=== PATIENT | female | born 1970 | race Caucasian/White ===

== ENCOUNTER 2018-12-31 11:47 | Outpatient (REF) | payer BC, SELFPAY | END 2018-12-31 12:07 | LOC: NCHCN 11:47 | PROVIDERS: PCP Nurse Practitioner; Visit Provider Family Medicine | DX: K61.1 Rectal abscess (principal) | CPT/HCPCS: 87070; 87205 ==

== ENCOUNTER 2019-05-11 15:27 | Outpatient (REF) | payer BC, SELFPAY ==
--- NOTE | 2019-05-11 15:00 | SKI_PTH ---
PATIENT: Maddi Anthony LOC: [facility] U#:[id number] AGE/SX: 49/F ROOM: RE05/11/[address]: Ghassan Rivas : 1970 BED: DIS: 05/11/2019 SPEC #: [id number] RECD: 05/12/19 12:46 STATUS: OPAL REQ #: [id number] INGE: 05/11/19 15:[address]: Ghassan Rivas DEPT: Surgical Specimen RECD BY: Coreen Marinelli ENTERED: 05/12/19 12:47 SP TYPE: TODD HOLMAN DR: Yoselin Alfaro Tissues: 1 - SKIN BIOPSY(SHAVE/PUNCH) Procedures: SKIN LEVEL 4 Comments: [id number]
== END 2019-05-11 15:47 ==
LOC: NCHCN 15:27
PROVIDERS: PCP Nurse Practitioner; Visit Provider Family Medicine
DX: L92.1 Necrobiosis lipoidica, not elsewhere classified (principal); L92.8 Other granulomatous disorders of the skin and subcutaneous tissue
CPT/HCPCS: 88305

== ENCOUNTER 2019-09-05 17:25 | Outpatient (REF) | payer BC, SELFPAY ==
[2019-09-05 18:53] LABS: COMMENT (LAB VIEW ONLY) < 13.00 mg/dL
== END 2019-09-05 17:45 ==
LOC: NCHCN 17:25
PROVIDERS: PCP Nurse Practitioner; Visit Provider Nurse Practitioner
DX: E11.9 Type 2 diabetes mellitus without complications (principal); Z79.4 Long term (current) use of insulin
CPT/HCPCS: 82043; 82570

== ENCOUNTER 2019-11-23 09:20 | Day surgery (SDC) | payer BC, SELFPAY ==
--- NOTE | 2019-11-23 07:33 | PDOC.DSDIS_ITS ---
Documented by User: Roseann Christian 11/23/19 07:37 Discharge Plan Disposition Patient Disposition: HOME Condition: Good Discharge Details Reason For Visit: LMF trigger finger Attending Provider: Cameron Caruso Primary Care Provider: Yoselin Alfaro Home Meds and New Rx's Prescriptions: New acetaminophen [Tylophen] 500 mg capsule 500 mg PO Q6H PRN (Reason: postoperative pain) Qty: 60 RF: 1 ibuprofen 600 mg tablet 600 mg PO TID PRN (Reason: pain) Qty: 60 RF: 1 hydrocodone-acetaminophen 5-325 mg tablet 1 tab PO Q8H PRN PRN (Reason: pain) Qty: 6 RF: 0 Continued metformin [Glucophage] 1,000 MG tablet 1,000 mg PO BID RF: 0 Lantus Solostar U-100 Insulin 100 UNIT/1 ML insulin pen 40 unit SQ HS RF: 0 fluticasone propion-salmeterol [Advair Diskus] 1 EACH blister with device 1 ea Inhalation BID RF: 0 omeprazole 20 MG capsule,delayed release(DR/EC) 1 tab PO DAILY RF: 0 albuterol sulfate [ProAir HFA] 200 PUFF HFA aerosol inhaler 2 puff Inhalation Q4H PRN PRNQty: 1 RF: 0 acyclovir 400 mg Tablet 400 mg PO PRN PRNRF: 0 pravastatin 10 mg Tablet 10 mg PO HS RF: 0 Ozempic 0.25 mg or 0.5 mg(2 mg/1.5 mL) Pen Injector 0.5 mg SUBCUT QWEEK RF: 0 No Action amitriptyline 50 mg Tablet 50 mg PO QHS RF: 0 Discharge Instructions Stand Alone Forms: Zuly Foote Finger Release Referrals: Cameron Caruso MD [ [facility] STAFF PHYSICIAN] - Activity:: Elevate Remove Dressings/Wound Care:: 48 hours Shower/Bathe:: 48 hours Diet:: As Tolerated Discharge Orders Discharge Orders: Discharge Order (Routine); Ordered 11/23/19 Ordered By: Roseann Christian DS: Diagnosis Discharge Diagnosis (1) Trigger finger, left middle finger: Status: Acute Documented by User: Cameron Caruso MD 11/23/19 10:41 Discharge Plan Disposition Patient Disposition: HOME Condition: Good Discharge Details Reason For Visit: LMF trigger finger Attending Provider: Cameron Caruso Primary Care Provider: Yoselin Alfaro Home Meds and New Rx's Prescriptions: New acetaminophen [Tylophen] 500 mg capsule 500 mg PO Q6H PRN (Reason: postoperative pain) Qty: 60 RF: 1 ibuprofen 600 mg tablet 600 mg PO TID PRN (Reason: pain) Qty: 60 RF: 1 hydrocodone-acetaminophen 5-325 mg tablet 1 tab PO Q8H PRN PRN (Reason: pain) Qty: 6 RF: 0 Continued metformin [Glucophage] 1,000 MG tablet 1,000 mg PO BID RF: 0 Lantus Solostar U-100 Insulin 100 UNIT/1 ML insulin pen 40 unit SQ HS RF: 0 fluticasone propion-salmeterol [Advair Diskus] 1 EACH blister with device 1 ea Inhalation BID RF: 0 omeprazole 20 MG capsule,delayed release(DR/EC) 1 tab PO DAILY RF: 0 albuterol sulfate [ProAir HFA] 200 PUFF HFA aerosol inhaler 2 puff Inhalation Q4H PRN PRNQty: 1 RF: 0 acyclovir 400 mg Tablet 400 mg PO PRN PRNRF: 0 pravastatin 10 mg Tablet 10 mg PO HS RF: 0 Ozempic 0.25 mg or 0.5 mg(2 mg/1.5 mL) Pen Injector 0.5 mg SUBCUT QWEEK RF: 0 No Action amitriptyline 50 mg Tablet 50 mg PO QHS RF: 0 Discharge Instructions Stand Alone Forms: Zuly Foote Finger Release Referrals: Cameron Caruso MD [ [facility] STAFF PHYSICIAN] - Activity:: Elevate Remove Dressings/Wound Care:: 48 hours Shower/Bathe:: 48 hours Diet:: As Tolerated Discharge Orders Discharge Orders: Discharge Order (Routine); Ordered 11/23/19 Ordered By: Roseann Christian
[2019-11-23] MEDS: Lactated Ringers 1,000 ML 80 ML IV (10:05)
[2019-11-23] MEDS: Sodium Bicarbonate 50 MEQ/50 ML VIAL (10:50)
[2019-11-23 11:28] VITALS: BP 119/89; PULSE 96; RESP 18; TEMP 36; O2SAT 99
--- NOTE | 2019-11-23 21:40 | W.PM.OP ---
Date of service: 11/23/19 Time of Service: 12:42 Operative Note Operative Note DATE OF PROCEDURE: 11/23/19 PRE-OP DIAGNOSIS: Left middle finger trigger finger POST-OP DIAGNOSIS: same PROCEDURE: Trigger Finger Release - [finger] Finger SURGEON: Cameron Caruso ANESTHESIA: MAC and local ESTIMATED BLOOD LOSS: 0 PATHOLOGY: none sent COMPLICATIONS: None Patient was transported to: same day Patient's condition: stable Indications: I have seen Maddi in clinic for symptoms of a trigger finger. The catching, clicking, locking, and pain limited function. The diagnosis of trigger finger was evident. The symptoms had not responded to conservative measures. I discussed trigger finger release with the patient. I reviewed the risks of the procedure to include, but not limited to, bleeding, infection, pain, stiffness, incomplete release, damage to nerves or vessels, continued catching, recurrence. Despite these risks, the patient elected to proceed. Findings: There was a tightened A1 bianca which was released. The flexor tendons were inspected and the patient was able to move the finger without any catching, clicking, or locking. Procedure Description: Maddi was greeted in the preoperative holding area where the correct side was identified and marked. The consent was reviewed with the patient and signed. All questions were answered. Maddi was taken back to the operating room. The patient was placed into the supine position on the operating room table with the left arm on an arm board. All bony prominences were well padded. No prophylactic antibiotics were administered since this was a clean, elective hand surgical case. The left arm was then prepped with Chloraprep and draped in a standard fashion with stockinette and extremity drape. A timeout to confirm correct identity, side and site, procedure, allergies, anesthesia, and medical concerns was performed. The surgical site was marked as a longitudinal incision directly over the A1 bianca of the involved digit. This was confirmed with palpation during finger flexion. This area, overlying the metacarpal head, was then anesthetized with 1% Lidocaine. The patient tolerated this well and once the anesthetic had setup, the procedure began. A MAC anesthetic was used to assist. A longitudinal incision was made through skin only, approximately 1cm. The deep tissues were dissected bluntly. Once the A1 bianca and flexor tendons were identified the soft tissue including neurovascular structures were retracted medially and laterally. There were no crossing structures over the A1 bianca. The proximal edge of the bianca was identified and the bianca was incised with tenotomy scissors. There was a release of the tendons once this was fully released. The tendons were then removed from the wound and inspected. Excess synovium was resected. The tendons were then returned and the patient was asked to move the finger into deep flexion and back to extension. There was no recreation of the pre-operative symptoms. The hand was then once more inspected for any A0 bianca or area of possible constriction. The wound was then irrigated and the skin was closed with a 4-0 Nylon. This was dressed with gauze and a Conform dressing. The patient tolerated the procedure well and was returned to the Same Day Surgery area in a stable condition suffering no known complication.
== END 2019-11-23 11:53 | disposition home or self-care (01) ==
LOC: SUR 09:21
PROVIDERS: PCP Nurse Practitioner; Visit Provider Student in an Organized Health Care Education/Training Program
PROC: (CPT 26055; principal; 2019-11-23 11:00)
DX: M65.332 Trigger finger, left middle finger (principal)
CPT/HCPCS: 26055; J2250; J2704

== ENCOUNTER 2020-05-10 21:30 | Outpatient (REF) | payer BC, SELFPAY ==
[2020-05-10 19:06] LABS: Hemoglobin A1C 7.2 % (3.8-5.6)
[2020-05-10 19:14] LABS: ALT 46 U/L (14-59); AST 26 U/L (15-37); Albumin 4.4 g/dL (3.4-5.0); Alkaline Phosphatase 70 U/L (46-116); Anion Gap 11.4 mmol/L (3-11); BUN 6 mg/dL (7-18); Bilirubin, Total 0.4 mg/dL (0.2-1.0); CO2 25.6 mmol/L (21.0-32.0); CREATININE 0.67 mg/dL (0.55-1.02); Calculated LDL 47 mg/dL (<100); Chloride 99 mmol/L (98-107); Cholesterol 131 mg/dL (<200); Glucose 186 mg/dL (74-106); HDL Cholesterol 71 mg/dL (40-60); Potassium 4.1 mmol/L (3.5-5.1); Sodium 136 mmol/L (136-145); TSH (W/Ref FT4) 0.34 uIU/mL (0.36-3.74); Total Protein 7.6 g/dL (6.4-8.2); Triglyceride 69 mg/dL (<150)
[2020-05-10 19:49] LABS: FREE T4 1.35 ng/dL (0.76-1.46)
== END 2020-05-10 21:50 ==
LOC: NCHCN 21:30
PROVIDERS: PCP Nurse Practitioner; Visit Provider Nurse Practitioner
DX: E03.9 Hypothyroidism, unspecified (principal); E11.9 Type 2 diabetes mellitus without complications; Z79.4 Long term (current) use of insulin
CPT/HCPCS: 80053; 80061; 83036; 84439; 84443

== ENCOUNTER 2020-05-15 10:56 | Outpatient (CLI) | payer BC, SELFPAY ==
--- NOTE | 2020-05-15 13:05 | DI.MAMMO_ITS ---
EXAM: MG MAMMO SCREENING CLINICAL HISTORY: SCREENING, [facility],Z00.00 TECHNIQUE: Bilateral full field digital CC and MLO mammographic images were obtained with 3D tomosyn thesis and utilizing computer aided detection (CAD). COMPARISON: Available for comparison. FINDINGS: Masses/Architectural Distortion: None seen. Microcalcifications: No suspicious pleomorphic-type are seen. Skin Thickening/Nipple Retraction: None. IMPRESSION: 1. No significant interval change with no specific features of malignancy noted. 2. Unless there is more urgent need, screening mammography is recommended, as per [place] [employer] guidelines. BI-RADS Category 1 - Negative Breast Density - Category B - Scattered areas of fibroglandular density A negative radiographic report should not delay biopsy if a dominant or clinically suspicious mass is present. Up to ten percent of cancers are not identified on mammography. A negative report may reinforce clinical impression. Adenosis and dense breasts may obscure an underlying neoplasm. False positive reports average 6 to 10%. Patient will receive a letter notifying them of these results.
== END 2020-05-15 11:16 ==
PROVIDERS: PCP Nurse Practitioner; Visit Provider Nurse Practitioner Family
DX: Z12.31 Encounter for screening mammogram for malignant neoplasm of breast (principal)
CPT/HCPCS: 77063; 77067

== ENCOUNTER 2021-01-07 20:35 | Outpatient (REF) | payer BC, SELFPAY | END 2021-01-07 20:36 | disposition home or self-care (01) | LOC: NCHCN 20:35 | PROVIDERS: PCP Nurse Practitioner; Visit Provider Nurse Practitioner Family | DX: N89.8 Other specified noninflammatory disorders of vagina (principal) | CPT/HCPCS: 87480; 87510; 87660 ==

== ENCOUNTER 2021-01-12 18:34 | Emergency (ER) | payer BC, SELFPAY ==
[2021-01-12 18:41] VITALS: BP 155/99; PULSE 89; TEMP 36.6; O2SAT 99
--- NOTE | 2021-01-12 18:49 | W.ED.GENAD ---
Discharge Plan Disposition Patient Disposition: HOME Condition: Stable Discharge Details Clinical Impression: Abrasion of cornea, right Primary Care Provider: Yoselin Alfaro ED Provider: Rosemarie Gotti Home Meds and New Rx's Prescriptions: Continued metformin [Glucophage] 1,000 MG tablet 1,000 mg PO BID RF: 0 Lantus Solostar U-100 Insulin 100 UNIT/1 ML insulin pen 30 unit SQ HS RF: 0 omeprazole 20 MG capsule,delayed release(DR/EC) 1 tab PO DAILY RF: 0 acyclovir 400 mg Tablet 400 mg PO BID RF: 0 pravastatin 10 mg Tablet 10 mg PO HS RF: 0 Ozempic 0.25 mg or 0.5 mg(2 mg/1.5 mL) Pen Injector 0.5 mg SUBCUT QWEEK RF: 0 acetaminophen [Tylophen] 500 mg capsule 500 mg PO Q6H PRN (Reason: postoperative pain) Qty: 60 RF: 1 ibuprofen 600 mg tablet 600 mg PO TID PRN (Reason: pain) Qty: 60 RF: 1 tizanidine 2 mg tablet 2 mg PO QHS PRNRF: 0 Discharge Instructions Instructions: Corneal Abrasion (ED) Additional Instructions: Continue to gently irrigate your eye with saline type solution as needed. Wear glasses until seen or advised by [facility]. At this time there was no contact lens visualized in your eye. There was a small corneal abrasion noted. If you continue to have symptoms please follow-up with [facility] on Thursday. Return to the ED for any eye discharge, worsening pain, or any concerns. Referrals: Yoselin Alfaro [Primary Care Provider] - EYE CARE,[facility] [OTHER] - Medical Decision Making 50-year-old female presents to the ER chief complaint of possible dislocated contact lens in her right eye since this morning. Patient is new to contact lenses and is using a trial pair of soft contact lenses and she states that she had a difficulty removing the right contact lens this morning and throughout the day she felt that she was unable to get it out. She is not sure if it is still in there or not. She does have a foreign body type sensation to her right lateral eye. She does have mild amount of erythema surrounding her eye, mildly injected conjunctive a. No drainage. Eye exam completed with Mac lamp and fluorescein, as noted in proceure note above, patient did not tolerate flipping of her eyelid, contact lenses or any foreign body was not visualized by me. There is a small corneal abrasion at 9:00 just lateral to the iris, patient is allergic to erythromycin. No antibiotics are indicated at this time. I did discuss home care with continued saline flushing as needed with patient, instructed to wear glasses and if continued discomfort to call [facility] on Thursday. Patient verbalizes understanding. She states that her irritation and pain has improved status post flushing with artificial tears. Discussed return instructions, patient verbalized understanding. This text was generated using [employer] dictation system, please disregard any oddities of phrase or misspellings. HPI General Mode of arrival: ambulatory. Date/Time Provider Initiated Documentation: 01/12/21 18:41. Limitations to Documentation: no limitations. Information obtained by: patient. HPI Narrative: 50-year-old female presents to the ER chief complaint of possible dislocated contact lens in her right eye since this morning. Patient is new to contact lenses and is using a trial pair of soft contact lenses and she states that she had a difficulty removing the right contact lens this morning and throughout the day she felt that she was unable to get it out. She is not sure if it is still in there or not. She does have a foreign body type sensation to her right lateral eye. She does have mild amount of erythema surrounding her eye, mildly injected conjunctive a. No drainage. Related Data Home Medications Medication Instructions Recorded Confirmed Lantus Solostar U-100 Insulin 30 unit SQ HS 08/01/13 01/12/21 metformin [Glucophage] 1,000 mg PO BID 08/01/13 01/12/21 omeprazole 1 tab PO DAILY 12/06/16 01/12/21 Ozempic 0.5 mg SUBCUT QWEEK 11/21/19 01/12/21 acyclovir 400 mg PO BID 11/21/19 12/02/19 pravastatin 10 mg PO HS 11/21/19 01/12/21 acetaminophen [Tylophen] 500 mg PO Q6H PRN #60 cap 11/23/19 01/12/21 ibuprofen 600 mg PO TID PRN #60 tab 11/23/19 01/12/21 tizanidine 2 mg PO QHS PRN 01/12/21 01/12/21 Previous Rx's Medication Instructions Recorded acetaminophen [Tylophen] 500 mg PO Q6H PRN #60 cap 11/23/19 ibuprofen 600 mg PO TID PRN #60 tab 11/23/19 Allergies Allergy/AdvReac Type Severity Reaction Status Date / Time Penicillins Allergy Severe Anaphylaxsi Unverified 01/12/21 18:46 s erythromycin base AdvReac Intermediate VOMITING Unverified 01/12/21 18:46 tramadol AdvReac Intermediate Nausea Unverified 01/12/21 18:46 acetaminophen AdvReac Unknown Unverified 01/12/21 18:46 [From Tylenol-Codeine] codeine AdvReac Unknown Other (See Unverified 01/12/21 18:46 [From Tylenol-Codeine] Comment) General Stated Complaint: EyeProblem MYLES: 4 Review of Systems All systems reviewed & are unremarkable except as noted in HPI and below Eyes Eyes: Reports system reviewed and no additional complaints, except as documented, Reports irritation and Reports other (Possible contact lens foreign body in eye) PFSH Medical History CHRONIC BRONCHITIS DM Smoker Surgical History Abdominal hysterectomy Hx of appendectomy Hx of cholecystectomy Trigger finger, left middle finger s/p release 11/23/2019 Social History Smoking/Tobacco Use Status: Former Tobacco Use Smoking risk assessment performed?: Yes Alcohol Intake: current Alcohol Intake frequency: holidays/special occasions only Drug use: Never Substance use type: does not use Do you feel safe at home: Yes Additional Social history: NOT IN CURRENT RELATIONSHIP Exam Eyes General: appearance normal, both eyes and all related structures Periorbital: periorbital findings abnormal right periorbital erythema (Mild) Eyelids: eyelids normal Conjunctivae: conjunctival abnormality right conjunctival injection (Mild) diffuse; without chemosis and without discharge Sclera: sclerae normal Cornea: corneas abnormal on the right fluorescein used and abrasion at the following clock position (9:00); with no foreign body noted (None visualized) and fluorescein used Pupils: PERRL and normal by confrontation EOM: EOM intact bilaterally Direct ophthalmoscopy: normal light reflex Other: Unable to flip lid, patient did not tolerate Eyes/upper lids images: 1. Corneal abrasion Course Vital Signs Vital signs: Vital Signs Temperature 36.6 C 01/12/21 18:41 Pulse 89 01/12/21 18:41 Blood Pressure 155/99 H 01/12/21 18:41 Pulse Oximetry 99 01/12/21 18:41 Temperature 36.6 C 01/12/21 18:41 Temperature Source Oral 01/12/21 18:41 Pulse 89 01/12/21 18:41 Blood Pressure 155/99 H 01/12/21 18:41 Blood Pressure Position Sitting 01/12/21 18:41 Pulse Oximetry 99 01/12/21 18:41 Oxygen Delivery Method Room Air 01/12/21 18:41 Oxygen Flow Rate 0 01/12/21 18:41 Pain Level 3 01/12/21 18:41 Procedures FB Removal Eye Time Out performed: Yes Location: eye (R) Topical anesthetic used: tetracaine Foreign body: other (Contact lens) Evidence of corneal penetration: No Technique: irrigation Procedure performed under: direct visualization with magnification (None visualized with mac lamp) Patient tolerated procedure: well Complications: incomplete foreign body removal and other (No FB visualized)
== END 2021-01-12 19:40 | disposition home or self-care (01) ==
PROVIDERS: Emergency Provider Registered Nurse Emergency; PCP Nurse Practitioner
DX: S05.01XA Injury of conjunctiva and corneal abrasion without foreign body, right eye, initial encounter (principal); X58.XXXA Exposure to other specified factors, initial encounter
CPT/HCPCS: 65205

== ENCOUNTER 2021-06-21 18:22 | Outpatient (REF) | payer BC, SELFPAY ==
--- NOTE | 2021-06-21 | DI.RAD_ITS ---
Exam(s) XR FOOT LT COMPLETE XR ANKLE LT COMPLETE EXAM: XR ANKLE LT COMPLETE CLINICAL HISTORY: PAIN IN LEFT ANKLE TECHNIQUE: COMPARISON: CR,XR XR FOOT LT COMPLETE from 06/21/2021 CR,XR XR FOOT LT COMPLETE from 06/21/2021 FINDINGS: Three views of the ankle and three views of the foot were obtained. The ankle mortise is well mainta ined. There is no evidence of acute fracture or dislocation involving the foot or ankle. IMPRESSION: RADIATION DOSE DELIVERED: Total DLP
--- NOTE | 2021-06-21 18:55 | DI.VRAD_ITS ---
PROCEDURE INFORMATION: Exam: XR Left Ankle Exam date and time: 06/21/2021 6:27 PM Age: 51 years old Clinical indication: Patient HX: Pain in left ankle TECHNIQUE: Imaging protocol: XR Left ankle. Views: 3 or more views. COMPARISON: No relevant prior studies available. FINDINGS: Bones/joints: Normal. Soft tissues: Normal. IMPRESSION: No acute findings. Dictated and Authenticated by: Clinton Mcdonnell MD. Ordering:HECTOR Delgado MD
--- NOTE | 2021-06-21 18:56 | DI.VRAD_ITS ---
PROCEDURE INFORMATION: Exam: XR Left Foot Exam date and time: 06/21/2021 6:27 PM Age: 51 years old Clinical indication: Patient HX: Pain in left foot, left ankle TECHNIQUE: Imaging protocol: XR Left foot. Views: 3 or more views. COMPARISON: No relevant prior studies available. FINDINGS: Bones/joints: Normal. Soft tissues: Normal. IMPRESSION: No acute findings. Dictated and Authenticated by: Clinton Mcdonnell MD. Ordering:HECTOR Delgado MD
== END 2021-06-21 18:42 ==
LOC: DI 18:22
PROVIDERS: PCP Nurse Practitioner; Visit Provider Physician Assistant Medical
DX: M79.672 Pain in left foot (principal); M25.572 Pain in left ankle and joints of left foot
CPT/HCPCS: 73610; 73630

== ENCOUNTER 2021-08-06 18:55 | Emergency (ER) | payer BC, SELFPAY ==
[2021-08-06 18:56] VITALS: BP 139/65; PULSE 100; RESP 18; TEMP 36.4; O2SAT 99
--- NOTE | 2021-08-06 19:32 | ED.GENADUL_ITS ---
Discharge Plan Disposition Patient Disposition: HOME Condition: Stable Discharge Details Clinical Impression: Bee sting reaction Primary Care Provider: Yoselin Alfaro ED Provider: Rosemarie Gotti Home Meds and New Rx's Prescriptions: New epinephrine 0.3 mg/0.3 mL auto-injector 0.3 mg IM ONCE PRN (Reason: anaphylaxis) Qty: 1 RF: 0 No Action ibuprofen 200 mg capsule 200 mg PO Q6H PRNRF: 0 fluticasone propionate 50 mcg/actuation spray,suspension 1 spray intranasal BID RF: 0 Lantus Solostar U-100 Insulin 100 unit/mL (3 mL) insulin pen 30 unit subcut HS RF: 0 metformin [Glucophage] 1,000 MG tablet 1,000 mg PO BID RF: 0 omeprazole 20 MG capsule,delayed release(DR/EC) 1 tab PO DAILY RF: 0 acyclovir 400 mg Tablet 400 mg PO BID RF: 0 pravastatin 10 mg Tablet 10 mg PO HS RF: 0 Ozempic 0.25 mg or 0.5 mg(2 mg/1.5 mL) Pen Injector 0.5 mg SUBCUT QWEEK RF: 0 acetaminophen [Tylophen] 500 mg capsule 500 mg PO Q6H PRN (Reason: postoperative pain) Qty: 60 RF: 1 ibuprofen 600 mg tablet 600 mg PO TID PRN (Reason: pain) Qty: 60 RF: 1 Discharge Instructions Instructions: Insect Bite or Sting (ED), Anaphylaxis (ED) Additional Instructions: At this time it appears you may have an allergic reaction to bee sting. This could be some tongue swelling from where the bee stung you. Please continue to take Benadryl 1 or 2 tablets every 6-8 hours as needed for swelling and hives. You may also take histamine 2 joan such as Pepcid daily for the next few days. You were given a steroid here in the department to reduce swelling for the next 3 days. This may make you feel jittery and the EpiPen will also make you feel jittery. Please return to the ER if you need to use the EpiPen again, any worsening shortness of breath, wheezing, swelling in your throat or any concerns. Referrals: Yoselin Alfaro [Primary Care Provider] - 5 days Discharge Data Discharge Date/Time-TO BE ENTERED AT DEPARTURE: 08/06/21 20:35 Medical Decision Making 51-year-old female presents to the ER via EMS status post being stung by a bee to the right side of her tongue prior to arrival. Patient reports that she was drinking a twisted tea when a bee had flown into it and staying around let the tongue. She was given Benadryl and 0.3 mg of EpiPen prior to arrival which impr trell her symptoms. She did initially complain of tongue swelling and pain. She reports 10 out of 10 tongue pain, and slight tongue swelling. Upon my initial exam she is speaking in full sentences, lungs are clear vital signs are stable. She reports that she feels much better. This has never happened to her before. She has no rash or any other associated symptoms. Posterior oropharynx is not swollen, uvula is midline, tonsils are 1+ bilaterally, no stridor no wheezes auscultated at this time. She does have a past medical history of chronic bronchitis, anxiety, hypothyroidism, IBS, diabetes. At this time plan is for discharge we will give p.o. dexamethasone here and discharged with EpiPen. Patient remained hemodynamically stable throughout stay. Instructed the use of EpiPen and strict return instructions. Patient verbalized understanding. Discussed sucking on ice. Taking Benadryl 1 or 2 tablets every 6-8 hours as needed for swelling or itching. HPI General Mode of arrival: EMS . Date/Time Provider Initiated Documentation: 08/06/21 19:32 . Limitations to Documentation: no limitations . Information obtained by: patient, RN notes reviewed and old records reviewed . HPI Narrative: 51-year-old female presents to the ER via EMS status post being stung by a bee to the right side of her tongue prior to arrival. Patient reports that she was drinking a twisted tea when a bee had flown into it and staying around let the tongue. She was given Benadryl and 0.3 mg of EpiPen prior to arrival which improved her symptoms. She did initially complain of t ongue swelling and pain. She reports 10 out of 10 tongue pain, and slight tongue swelling. Upon my initial exam she is speaking in full sentences, lungs are clear vital signs are stable. She reports that she feels much better. This has never happened to her before. She has no rash or any other associated symptoms. Posterior oropharynx is not swollen, uvula is midline, tonsils are 1+ bilaterally, no stridor no wheezes auscultated at this time. She does have a past medical history of chronic bronchitis, anxiety, hypothyroidism, IBS, diabetes. Related Data Home Medications Medication Instructions Recorded Confirmed metformin [Glucophage] 1,000 mg PO BID 08/01/13 08/06/21 omeprazole 1 tab PO DAILY 12/06/16 08/06/21 Ozempic 0.5 mg SUBCUT QWEEK 11/21/19 08/06/21 acyclovir 400 mg PO BID 11/21/19 08/06/21 pravastatin 10 mg PO HS 11/21/19 08/06/21 acetaminophen [Tylophen] 500 mg PO Q6H PRN #60 cap 11/23/19 08/06/21 ibuprofen 600 mg PO TID PRN #60 tab 11/23/19 08/06/21 fluticasone propionate 50 1 spray INTRANASAL BID 07/08/21 08/06/21 mcg/actuation nasal spray,suspension ibuprofen 200 mg capsule 200 mg PO Q6H PRN 07/08/21 08/06/21 insulin glargine 100 unit/mL (3 30 unit SUBCUT HS ml 07/08/21 08/06/21 mL) subcutaneous pen epinephrine 0.3 mg IM ONCE PRN #1 ea 08/06/21 Previous Rx's Medication Instructions Recorded acetaminophen [Tylophen] 500 mg PO Q6H PRN #60 cap 11/23/19 ibuprofen 600 mg PO TID PRN #60 tab 11/23/19 epinephrine 0.3 mg IM ONCE PRN #1 ea 08/06/21 Allergies Allergy/AdvReac Type Severity Reaction Status Date / Time Penicillins Allergy Severe Anaphylaxsi Unverified 08/06/21 19:03 s erythromycin base AdvReac Intermediate VOMITING Unverified 08/06/21 19:03 tramadol AdvReac Intermediate Nausea Unverified 08/06/21 19:03 acetaminophen AdvReac Unknown Unverified 08/06/21 19:03 [From Tylenol-Codeine] codeine AdvReac Unknown Other (See Unverified 08/06/21 19:03 [From Tylenol-Codeine] Comment) General Stated Complaint: Allergic MYLES: 2 Review of Systems Narrative: Constitutional: Negative for weight loss, alert and oriented, well groomed, normal body habitus, appears comfortable. Does have some right-sided tongue swelling as noted in HPI. HEENT: Denies trauma, headaches, blurry vision, nasal discharge, sore throat, trouble swallowing. Chest: Denies chest pain, palpitations, irregular rhythm, hypertension. Respiratory: Denies Shortness of breath, cough, hemoptysis. Denies wheezing. GI: Denies abdominal pain, nausea, vomiting, diarrhea, constipation. : Denies dysuria, hematuria, flank pain, rectal bleeding. Neuro: Denies dizziness, blurry vision, weakness, syncope, headache or facial numbness. Hematologic: Denies easy bruising, intolerance to heat or cold, hair loss. [facility] Medical History (Updated 08/06/21 @ 20:21 by Rosemarie Gotti) Anger Chronic anxiety CHRONIC BRONCHITIS Chronic bronchitis DM Hoarseness IBS (irritable bowel syndrome) Insomnia Insulin dependent diabetes mellitus Intertrigo Necrobiosis lipoidica diabeticorum Overactive bladder Smoker Subclinical hypothyroidism Tendonitis Tobacco dependency Urinary frequency Vaginal dryness Surgical History Abdominal hysterectomy Hx of appendectomy Hx of cholecystectomy Trigger finger, left middle finger s/p release 11/23/2019 Social History Smoking/Tobacco Use Status: Current every day Tobacco Type: cigarettes Smoking risk assessment performed?: Yes Alcohol Intake: current Alcohol Intake frequency: a few times a week Alcohol type: hard liquor Drug use: Never Substance use type: does not use Do you feel safe at home: Yes Do you feel safe in your relationship?: Yes Additional Social history: NOT IN CURRENT RELATIONSHIP Exam Narrative Exam Narrative: Constitutional: Alert and oriented x3. Appears stated age. Normal body habitus. Head: Normocephalic, no trauma. Eyes: Pupils PERRLA, Red reflex noted, EOM's intact. Eyelids symmetrical without lesions, discharge, or swelling. ENT: Bilateral TM's WNL, External ear normal to inspection, no mastoid TTP, swelling, or erythema, Nasal turbinates WNL, no nasal discharge. Normal dentition, Posterior pharynx WNL, no exudate. Slight amount of swelling noted to the right side of the tongue. No stinger visualized. Uvula midline no posterior pharynx swelling. Chest: RRR, Normal S1, S2, distal pulses intact. Resp: Lungs clear to auscultation bilaterally, no wheezes, rales, or rhonchi. No stridor. Musculoskeletal: Normal gait, 5/5 strength to all four extremities. Skin: No suspicious rashes or lesions. Capillary refill less than 2 sec. Neurologic: Cranial nerves II-XII intact. Alert and oriented x 3. DTR's intact. Hematologic/Lymphatic: No ecchymosis, no lymphadenopathy. Course Vital Signs Vital signs: Vital Signs Temperature 36.4 C L 08/06/21 18:56 Pulse 100 H 08/06/21 18:56 Respiratory Rate 18 08/06/21 18:56 Blood Pressure 139/65 08/06/21 18:56 Pulse Oximetry 99 08/06/21 18:56 Temperature 36.4 C L 08/06/21 18:56 Temperature Source Temporal Artery Scan 08/06/21 18:56 Pulse 100 H 08/06/21 18:56 Respiratory Rate 18 08/06/21 18:56 Respiratory Effort Non-Labored 08/06/21 19:07 Respiratory Pattern Normal 08/06/21 19:07 Blood Pressure 139/65 08/06/21 18:56 Blood Pressure Position Sitting 08/06/21 18:56 Pulse Oximetry 99 08/06/21 18:56 Oxygen Delivery Method Room Air 08/06/21 18:56 Oxygen Flow Rate 0 08/06/21 18:56 Pain Level 10 08/06/21 18:56
[2021-08-06] MEDS: Dexamethasone 10 MG/ML VIAL PO (20:16)
[2021-08-06 20:35] VITALS: BP 136/60; PULSE 84; RESP 16; TEMP 36.6; O2SAT 99
[2021-08-06] MEDS: EPINEPHrine 0.3 MG KIT IM (20:36)
== END 2021-08-06 20:35 | disposition home or self-care (01) ==
PROVIDERS: Emergency Provider Registered Nurse Emergency; PCP Nurse Practitioner
DX: T63.441A Toxic effect of venom of bees, accidental (unintentional), initial encounter (principal); R22.0 Localized swelling, mass and lump, head
CPT/HCPCS: 99283; J0171; J1100

== ENCOUNTER 2021-11-04 18:39 | Outpatient (REF) | payer BC, SELFPAY ==
[2021-11-04 20:35] LABS: ALT 41 U/L (14-59); AST 25 U/L (15-37); Albumin 3.9 g/dL (3.4-5.0); Alkaline Phosphatase 76 U/L (46-116); Anion Gap 5.9 mmol/L (3-11); BUN 8 mg/dL (7-18); Bilirubin, Total 0.2 mg/dL (0.2-1.0); CO2 31.1 mmol/L (21.0-32.0); CREATININE 0.7 mg/dL (0.55-1.02); Calcium 9.6 mg/dL (8.5-10.1); Calculated LDL 79 mg/dL (<100); Chloride 103 mmol/L (98-107); Cholesterol 167 mg/dL (<200); Glucose 116 mg/dL (74-106); HDL Cholesterol 77 mg/dL (40-60); Potassium 4.5 mmol/L (3.5-5.1); Sodium 140 mmol/L (136-145); Total Protein 7.3 g/dL (6.4-8.2); Triglyceride 59 mg/dL (<150)
== END 2021-11-04 18:40 | disposition home or self-care (01) ==
LOC: NCHCN 18:39
PROVIDERS: PCP Nurse Practitioner; Visit Provider Nurse Practitioner
DX: E11.9 Type 2 diabetes mellitus without complications (principal); Z79.4 Long term (current) use of insulin
CPT/HCPCS: 80053; 80061

== ENCOUNTER 2021-11-09 14:42 | Emergency (ER) | payer BC, SELFPAY ==
[2021-11-09 14:48] VITALS: BP 118/53; PULSE 103; RESP 16; TEMP 36.2; O2SAT 98
--- NOTE | 2021-11-09 15:00 | DI.RAD_ITS ---
Exam(s) XR THUMB LT EXAM: XR THUMB LT CLINICAL HISTORY: Laceration-evaluate for foreign body/glass. TECHNIQUE: 2D digital imaging was performed. COMPARISON: No exams were available for comparison FINDINGS: Bandage material. No fracture evident. No radiopaque foreign body. No osseous lesions. No radiogr aphic evidence of osteomyelitis. No degenerative changes. IMPRESSION: DATA REPOSITORY: RADIATION DOSE DELIVERED:
--- NOTE | 2021-11-09 15:46 | DI.VRAD_ITS ---
PROCEDURE INFORMATION: Exam: XR Left Finger(s) Exam date and time: 11/09/2021 3:02 PM Age: 51 years old Clinical indication: Injury or trauma; Other: Laceration-evaluate for foreign body/glass; Wound; Finger; Left; Thumb TECHNIQUE: Imaging protocol: XR Left fingers. Views: Minimum 2 views. COMPARISON: MRI - L UPPER JOINT WO CONT 29/08/2016 15:53 FINDINGS: Bones/joints: There is no fracture or dislocation. Soft tissues: No radiopaque foreign body is seen within the soft tissues of the thumb. IMPRESSION: Normal extremity. Dictated and Authenticated by: Grant Smith MD. Ordering:HEATHER Barnes MD
--- NOTE | 2021-11-09 15:49 | ED.GENADUL_ITS ---
Discharge Plan Disposition Patient Disposition: HOME Condition: Improving Discharge Details Clinical Impression: Finger laceration Primary Care Provider: Yoselin Alfaro ED Provider: Cameron Toney Home Meds and New Rx's Prescriptions: Continued ibuprofen 200 mg capsule 200 mg PO Q6H PRNRF: 0 fluticasone propionate 50 mcg/actuation spray,suspension 1 spray intranasal BID RF: 0 Lantus Solostar U-100 Insulin 100 unit/mL (3 mL) insulin pen 30 unit subcut HS RF: 0 metformin [Glucophage] 1,000 MG tablet 1,000 mg PO BID RF: 0 omeprazole 20 MG capsule,delayed release(DR/EC) 1 tab PO DAILY RF: 0 acyclovir 400 mg Tablet 400 mg PO BID RF: 0 pravastatin 10 mg Tablet 10 mg PO HS RF: 0 Ozempic 0.25 mg or 0.5 mg(2 mg/1.5 mL) Pen Injector 0.5 mg SUBCUT QWEEK RF: 0 acetaminophen [Tylophen] 500 mg capsule 500 mg PO Q6H PRN (Reason: postoperative pain) Qty: 60 RF: 1 ibuprofen 600 mg tablet 600 mg PO TID PRN (Reason: pain) Qty: 60 RF: 1 epinephrine 0.3 mg/0.3 mL auto-injector 0.3 mg IM ONCE PRN (Reason: anaphylaxis) Qty: 1 RF: 0 Discharge Instructions Instructions: Finger Laceration (ED) Additional Instructions: Please monitor for signs of infection and return immediately if these occur. Otherwise keep wound clean and dry and return in 10 days for suture removal. Discharge Data Discharge Date/Time-TO BE ENTERED AT DEPARTURE: 11/09/21 16:00 Medical Decision Making Patient presenting for chief complaint of laceration to left hand including thumb and middle finger. Patient denies any other injury or trauma and tetanus is not up-to-date. Plan to do radiological imaging to evaluate for foreign radiopaque glass that may be embedded in finger and update tetanus. No visible radiopaque foreign body is noted on imaging and wound was closed after thorough irrigation and exploration. See procedure note for wound closure Given clean injury I do not feel that empiric antibiotics are needed at this time but close monitoring of wound was discussed with patient. After discussion of diagnosis and plan of care patient has no further needs, questions, or concerns and states clear understanding to return to the emergency department for any worsening symptoms. HPI General Mode of arrival: ambulatory . Date/Time Provider Initiated Documentation: 11/09/21 14:55 . Limitations to Documentation: no limitations . Information obtained by: patient . History of Present Illness 51 year old F presents to the emergency department with the chief complaint of Left thumb laceration, described as severe, with intensity rated at 10. Quality is described as burning, and is localized to the left and upper extremity. Patient reports no radiation. Patient started experiencing this minute(s) (30) and it has been constant. No relieving factors improve symptom(s), No exacerbating factors reported . Patient notes no other symptoms.. Patient did receive the following treatments prior to arrival, none Related Data Home Medications Medication Instructions Recorded Confirmed metformin [Glucophage] 1,000 mg PO BID 08/01/13 11/09/21 omeprazole 1 tab PO DAILY 12/06/16 11/09/21 Ozempic 0.5 mg SUBCUT QWEEK 11/21/19 11/09/21 acyclovir 400 mg PO BID 11/21/19 11/09/21 pravastatin 10 mg PO HS 11/21/19 11/09/21 acetaminophen [Tylophen] 500 mg PO Q6H PRN #60 cap 11/23/19 11/09/21 ibuprofen 600 mg PO TID PRN #60 tab 11/23/19 11/09/21 fluticasone propionate 50 1 spray INTRANASAL BID 07/08/21 11/09/21 mcg/actuation nasal spray,suspension ibuprofen 200 mg capsule 200 mg PO Q6H PRN 07/08/21 11/09/21 insulin glargine 100 unit/mL (3 30 unit SUBCUT HS ml 07/08/21 11/09/21 mL) subcutaneous pen epinephrine 0.3 mg IM ONCE PRN #1 ea 08/06/21 11/09/21 Previous Rx's Medication Instructions Recorded acetaminophen [Tylophen] 500 mg PO Q6H PRN #60 cap 11/23/19 ibuprofen 600 mg PO TID PRN #60 tab 11/23/19 epinephrine 0.3 mg IM ONCE PRN #1 ea 08/06/21 Allergies Allergy/AdvReac Type Severity Reaction Status Date / Time Penicillins Allergy Severe Anaphylaxsi Unverified 11/09/21 14:51 s erythromycin base AdvReac Intermediate VOMITING Unverified 11/09/21 14:51 tramadol AdvReac Intermediate Nausea Unverified 11/09/21 14:51 acetaminophen AdvReac Unknown Unverified 11/09/21 14:51 [From Tylenol-Codeine] codeine AdvReac Unknown Other (See Unverified 11/09/21 14:51 [From Tylenol-Codeine] Comment) General Stated Complaint: Laceration MYLES: 4 Review of Systems Cardiovascular Cardiovascular: Denies syncope and Denies lightheadedness Gastrointestinal Gastrointestinal: Denies nausea and Denies vomiting Musculoskeletal Musculoskeletal: Denies deformity, Denies limited range of motion and Denies numbness Integumentary/Breasts Skin/Breast: Reports as per HPI Neurologic Neurologic: Denies syncope, Denies numbness and Denies paresthesias PFSH All Active Problems Bee sting reaction (Acute) Finger laceration (Acute) Abrasion of cornea, right (Acute) Medical History Anger Chronic anxiety CHRONIC BRONCHITIS Chronic bronchitis DM Hoarseness IBS (irritable bowel syndrome) Insomnia Insulin dependent diabetes mellitus Intertrigo Necrobiosis lipoidica diabeticorum Overactive bladder Smoker Subclinical hypothyroidism Tendonitis Tobacco dependency Urinary frequency Vaginal dryness Surgical History Abdominal hysterectomy Hx of appendectomy Hx of cholecystectomy Trigger finger, left middle finger s/p release 11/23/2019 Social History Smoking/Tobacco Use Status: Current every day Tobacco Type: cigarettes Smoking risk assessment performed?: Yes Alcohol Intake: current Alcohol Intake frequency: a few times a week Alcohol type: hard liquor Drug use: Never Substance use type: does not use Do you feel safe at home: Yes Do you feel safe in your relationship?: Yes Additional Social history: NOT IN CURRENT RELATIONSHIP Exam Const General: cooperative and no acute distress Orientation: alert, awake and oriented x3 Limitations: mental status not altered Resp Effort & Inspection: normal respiratory effort and able to speak in complete sentences Cardio Rate: regular rate Rhythm: regular rhythm Skin General skin exam: no rashes or lesions noted Trauma: laceration (left thumb and middle finger) Nails: normal Neuro General: patient alert, patient awake, patient oriented x3, gait normal, tone normal, moves all extremities, normal light touch, pain and propioception and no focal motor deficits Motor: no movement abnormalities noted Sensory Exam: no sensory deficits noted Extrem General: normal exam except as noted Left upper extremity: hand Details: normal capillary refill, neuromotor exam normal, tendon exam normal, normal ROM of fingers and laceration (2cm thumb(subcutaneous) and 2cm(superficial) middle finger) Course Vital Signs Vital signs: Vital Signs Temperature 36.2 C L 11/09/21 14:48 Pulse 103 H 11/09/21 14:48 Respiratory Rate 16 11/09/21 14:48 Blood Pressure 118/53 L 11/09/21 14:48 Pulse Oximetry 98 11/09/21 14:48 Temperature 36.2 C L 11/09/21 14:48 Temperature Source Skin 11/09/21 14:48 Pulse 103 H 11/09/21 14:48 Respiratory Rate 16 11/09/21 14:48 Respiratory Effort 11/09/21 14:48 Blood Pressure 118/53 L 11/09/21 14:48 Blood Pressure Position Sitting 11/09/21 14:48 Pulse Oximetry 98 11/09/21 14:48 Oxygen Delivery Method Room Air 11/09/21 14:48 Oxygen Flow Rate 0 11/09/21 14:48 Pain Level 10 11/09/21 14:48 Procedures Laceration Laceration 1: Site: hand Side (If applicable): left (thumb) Size (cm): 2 Description: linear and clean Depth: simple, single layer Local Anesthetic: Lidocaine 1% Amount of anesthesia used (mL): 3 Pre-repair: wound explored, irrigated extensively and deep structures intact Skin layer closed with: other (Prolene) Size (cm): 4-0 Number of sutures: 3 Technique: simple, interrupted Laceration 2: Site: hand Side (If applicable): left (middle finger) Size (cm): 2 Description: linear Pre-repair: wound explored and irrigated extensively Skin layer closed with: other (Dermabond skin adhesive)
== END 2021-11-09 16:00 | disposition home or self-care (01) ==
PROVIDERS: Emergency Provider Nurse Practitioner Family; PCP Nurse Practitioner
DX: S61.012A Laceration without foreign body of left thumb without damage to nail, initial encounter (principal); W25.XXXA Contact with sharp glass, initial encounter
CPT/HCPCS: 12002; 90471; 73140

== ENCOUNTER 2021-11-18 14:42 | Emergency (ER) | payer BC, SELFPAY ==
[2021-11-18 14:44] VITALS: BP 136/67; PULSE 85; RESP 14; TEMP 36.8; O2SAT 99
--- NOTE | 2021-11-18 14:51 | ED.GENADUL_ITS ---
Discharge Plan Disposition Patient Disposition: HOME Condition: Good Discharge Details Clinical Impression: Encounter for removal of sutures Primary Care Provider: Yoselin Alfaro ED Provider: Elly Jung Home Meds and New Rx's Prescriptions: Continued polyethylene glycol 3350 17 gram/dose powder 238 g PO ONCE Qty: 238 RF: 0 bisacodyl [Dulcolax (bisacodyl)] 5 mg tablet,delayed release (DR/EC) 5 mg PO ONCE Qty: 4 RF: 0 ibuprofen 200 mg capsule 200 mg PO Q6H PRNRF: 0 Lantus Solostar U-100 Insulin 100 unit/mL (3 mL) insulin pen 25 unit subcut HS RF: 0 metformin [Glucophage] 1,000 MG tablet 1,000 mg PO BID RF: 0 omeprazole 20 MG capsule,delayed release(DR/EC) 1 tab PO DAILY RF: 0 acyclovir 400 mg Tablet 400 mg PO BID RF: 0 pravastatin 10 mg Tablet 10 mg PO HS RF: 0 Ozempic 0.25 mg or 0.5 mg(2 mg/1.5 mL) Pen Injector 0.5 mg SUBCUT QWEEK RF: 0 acetaminophen [Tylophen] 500 mg capsule 500 mg PO Q6H PRN (Reason: postoperative pain) Qty: 60 RF: 1 epinephrine 0.3 mg/0.3 mL auto-injector 0.3 mg IM ONCE PRN (Reason: anaphylaxis) Qty: 1 RF: 0 Discharge Instructions Instructions: Stitches Removal (ED) Additional Instructions: Wound appears to be healing well with no evidence of infection. Stitches were removed. Please keep Bandaid on while it continues to heal and prevent catching wound edges. Wear gloves when appropriate. Monitor for signs of infection including redness, warmth, drainage, increased pain, fevers/chills. If you develop these or other new/worsening symptoms please seek care urgently once again. Referrals: Yoselin Alfaro [Primary Care Provider] - Medical Decision Making Patient is a pleasant 51 year old RHD female presenting today for suture removal. Here 10 days ago after suffering laceration to left thumb and middle finger. Both healing well with no evidence of infection. Thumb closed with suture. Appears to be healing as expected, wound edges well approximated. #3 sutures removed without complications. Advised she cover with bandaid to prevent contamination and protect as it continues to heal. Discussed wound care. Return precautions discussed. All of her questions and concerns were addressed, she is in agreement with this plan. HPI General Mode of arrival: ambulatory . Date/Time Provider Initiated Documentation: 11/18/21 14:51 . Limitations to Documentation: no limitations . Information obtained by: patient, RN notes reviewed and old records reviewed . History of Present Illness 51 year old F presents to the emergency department with the chief complaint of suture removal, described as mild (states slight discomfort with pressure applied over the wound), Quality is described as aching, and is localized to the left and upper extremity. Patient reports no radiation. Patient started experiencing this day(s) (10) and it has been intermittent. Immobilization improves symptom(s), Movement worsens symptoms . Patient notes no other symptoms.. Patient did receive the following treatments prior to arrival, none Related Data Home Medications Medication Instructions Recorded Confirmed metformin [Glucophage] 1,000 mg PO BID 08/01/13 11/18/21 omeprazole 1 tab PO DAILY 12/06/16 11/18/21 Ozempic 0.5 mg SUBCUT QWEEK 11/21/19 11/18/21 acyclovir 400 mg PO BID 11/21/19 11/18/21 pravastatin 10 mg PO HS 11/21/19 11/18/21 acetaminophen [Tylophen] 500 mg PO Q6H PRN #60 cap 11/23/19 11/18/21 ibuprofen 200 mg capsule 200 mg PO Q6H PRN 07/08/21 11/18/21 epinephrine 0.3 mg IM ONCE PRN #1 ea 08/06/21 11/18/21 bisacodyl 5 mg tablet,delayed 5 mg PO ONCE #4 tab 11/14/21 11/18/21 release insulin glargine 100 unit/mL (3 25 unit SUBCUT HS ml 11/14/21 11/18/21 mL) subcutaneous pen polyethylene glycol 3350 17 238 g PO ONCE #238 g 11/14/21 11/18/21 gram/dose oral powder Previous Rx's Medication Instructions Recorded acetaminophen [Tylophen] 500 mg PO Q6H PRN #60 cap 11/23/19 epinephrine 0.3 mg IM ONCE PRN #1 ea 08/06/21 bisacodyl 5 mg tablet,delayed 5 mg PO ONCE #4 tab 11/14/21 release polyethylene glycol 3350 17 238 g PO ONCE #238 g 11/14/21 gram/dose oral powder Allergies Allergy/AdvReac Type Severity Reaction Status Date / Time Penicillins Allergy Severe Anaphylaxsi Unverified 11/18/21 14:48 s erythromycin base AdvReac Intermediate VOMITING Unverified 11/18/21 14:48 tramadol AdvReac Intermediate Nausea Unverified 11/18/21 14:48 codeine AdvReac Unknown Other (See Unverified 11/18/21 14:48 [From Tylenol-Codeine] Comment) General Stated Complaint: SutureRem MYLES: 5 Review of Systems Constitutional Constitutional: Reports as per HPI, Denies chills and Denies fever(s) Musculoskeletal Musculoskeletal: Reports as per HPI and Denies tingling Integumentary/Breasts Skin/Breast: Reports as per HPI Neurologic Neurologic: Denies sensory deficit and Denies tingling PFSH All Active Problems (Updated 11/18/21 @ 15:00 by LITTLE Tobias) Encounter for removal of sutures (Acute) Bee sting reaction (Acute) Finger laceration (Acute) Abrasion of cornea, right (Acute) Medical History Anger Chronic anxiety CHRONIC BRONCHITIS Chronic bronchitis DM Hoarseness IBS (irritable bowel syndrome) Insomnia Insulin dependent diabetes mellitus Intertrigo Necrobiosis lipoidica diabeticorum Overactive bladder Smoker Subclinical hypothyroidism Tendonitis Tobacco dependency Urinary frequency Vaginal dryness Surgical History Abdominal hysterectomy Hx of appendectomy Hx of cholecystectomy Trigger finger, left middle finger s/p release 11/23/2019 Social History Smoking/Tobacco Use Status: Current every day Tobacco Type: cigarettes Smoking risk assessment performed?: Yes Alcohol Intake: current Alcohol Intake frequency: a few times a week Alcohol type: hard liquor Drug use: Never Substance use type: does not use Do you feel safe at home: Yes Do you feel safe in your relationship?: Yes Additional Social history: NOT IN CURRENT RELATIONSHIP Exam Const General: cooperative, healthy appearing, comfortable, no acute distress and well developed Nutritional Appearance: average body habitus and well nourished Orientation: alert and awake Resp Effort & Inspection: normal respiratory effort, able to speak in complete sentences and no respiratory distress Cardio Rate: regular rate Rhythm: regular rhythm Skin Trauma: laceration (healing well without signs of infection) Neuro General: patient alert and patient awake Cognition: normal cognition Speech: speech normal Gait: normal gait Motor: muscle tone normal throughout Extrem Hand/finger images: 1. laceration along flexor surface of left thumb. Healing well. No erythema, warmth, drainage or other sign of infection. Sensation intact. Intact capillary refill. Psych Appearance: grossly normal and well kempt Mental Status: mental status grossly normal Speech and Movement: speech and movement normal Course Vital Signs Vital signs: Vital Signs Temperature 36.8 C 11/18/21 14:44 Pulse 85 11/18/21 14:44 Respiratory Rate 14 11/18/21 14:44 Blood Pressure 136/67 11/18/21 14:44 Pulse Oximetry 99 11/18/21 14:44 Temperature 36.8 C 11/18/21 14:44 Temperature Source Skin 11/18/21 14:44 Pulse 85 11/18/21 14:44 Respiratory Rate 14 11/18/21 14:44 Respiratory Effort 11/18/21 14:49 Blood Pressure 136/67 11/18/21 14:44 Pulse Oximetry 99 11/18/21 14:44 Oxygen Delivery Method Room Air 11/18/21 14:44 Oxygen Flow Rate 0 11/18/21 14:44 Pain Level 0 11/18/21 14:44 PAWSS Have you Been Recently Intoxicated or Drunk Within the Last 30 days?: Yes Have you Ever Experienced Previous Episodes of Alcohol Withdrawal?: No Have you ever Experienced Withdrawal Seizures?: No Have you ever Experienced Delirium Tremens(DT)s?: No Have you ever undergone Alcohol Rehabilitation Treatment (i.e, inpt ot outpatient treatment programs)?: No Have you ever Experienced Blackouts?: No Have you ever Combined Alcohol with other Downers within the last 90 days?: No Have you ever Combined Alcohol with any other Substance of Abuse during the last 90 days?: No Positive Blood Alcohol level on Presentation? [PCS.BAL]: No Evidence of Increased Autonomic Activity (i.e. HR>120, tremor, sweating, agitation, nausea)?: No Result: 1
== END 2021-11-18 15:11 | disposition home or self-care (01) ==
PROVIDERS: Emergency Provider Physician Assistant; PCP Nurse Practitioner
DX: S61.012D Laceration without foreign body of left thumb without damage to nail, subsequent encounter (principal); X58.XXXD Exposure to other specified factors, subsequent encounter; Z48.02 Encounter for removal of sutures

== ENCOUNTER 2021-11-20 03:23 | Outpatient (CLI) | payer BC, SELFPAY ==
[2021-11-20 11:48] LABS: Source Nasal/Nares
[2021-11-20 18:42] LABS: COVID-19 PCR Negative (Negative)
== END 2021-11-20 03:24 | disposition home or self-care (01) ==
LOC: LBO 03:24
PROVIDERS: PCP Nurse Practitioner; Visit Provider Surgery
DX: Z20.822 Contact with and (suspected) exposure to COVID-19 (principal); Z01.818 Encounter for other preprocedural examination
CPT/HCPCS: 87635

== ENCOUNTER 2021-11-22 11:53 | Day surgery (SDC) | payer BC, SELFPAY ==
--- NOTE | 2021-11-21 18:05 | W.COLOREPORT ---
Colonoscopy Report Date of procedure: 11/22/21 Pre-op diagnosis general: crc screen/hx of diverticulitis &IBS-D Post-op diagnosis procedure note: other (diverticula and polyps ) Surgeon: Roseann Rojas Anesthesia Type: General LMA/ETT Estimated blood loss (mL): 1 Pathology: other Complications: None Disposition: same day Prep: Miralax/Dulcolax Retraction Time: 10 Procedure Description: After informed consent was obtained the patient was taken to the procedure room and placed in a left decubitous position. Monitors were applied and a time out was done. The patients name, date of , procedure, allergies to medications and metal in their body was reviewed. The patient was then sedated. Once sedated and comfortable a rectal exam was done. External exam was normal. Internal exam revealed a normal sphincter tone and no palpable masses. The scope was then introduced and retrofelexed. No internal hemorrhoids were identified. The scope was then advanced to the cecum w/out difficulty. The TI and appendiceal orifice were identified. The prep was adequate. The scope was then slowly retracted over 10 minutes back into the rectum. She had 2 polyps removed at 60 cm. One was removed with cold biopsy and was 5 mm and flat in size. The other is 8 mm in size and is removed with a forceps. She has a polyp at 40 cm that was removed with a hot forcep. All specimens were retrieved and no bleeding was noted. She does have mild to moderate diverticular disease confined in the sigmoid colon with no signs of active bleeding or infection. Biopsy was taken at 80 cm because of her history of IBS-D. Otherwise the mucosa appeared normal the scope was removed and the patient was woken up and taken back to Same day surgery in stable condition. The patient tolerated the procedure well and there were no immediate complications. Follow up: The patient should follow up in 5 years unless they develop changes in bowel habits or other new gastrointestinal complaints.
--- NOTE | 2021-11-21 18:07 | PDOC.DSDIS_ITS ---
Discharge Plan Disposition Patient Disposition: HOME Condition: Good Discharge Details Reason For Visit: colon scope Attending Provider: Roseann Rojas Primary Care Provider: Yoselin Alfaro Home Meds and New Rx's Prescriptions: Continued ibuprofen 200 mg capsule 200 mg PO Q6H PRNRF: 0 Lantus Solostar U-100 Insulin 100 unit/mL (3 mL) insulin pen 25 unit subcut HS RF: 0 metformin [Glucophage] 1,000 MG tablet 1,000 mg PO BID RF: 0 omeprazole 20 MG capsule,delayed release(DR/EC) 1 tab PO DAILY RF: 0 acyclovir 400 mg Tablet 400 mg PO BID RF: 0 pravastatin 10 mg Tablet 10 mg PO HS RF: 0 Ozempic 0.25 mg or 0.5 mg(2 mg/1.5 mL) Pen Injector 0.5 mg SUBCUT QWEEK RF: 0 acetaminophen [Tylophen] 500 mg capsule 500 mg PO Q6H PRN (Reason: postoperative pain) Qty: 60 RF: 1 epinephrine 0.3 mg/0.3 mL auto-injector 0.3 mg IM ONCE PRN (Reason: anaphylaxis) Qty: 1 RF: 0 Discontinued polyethylene glycol 3350 17 gram/dose powder 238 g PO ONCE Qty: 238 RF: 0 bisacodyl [Dulcolax (bisacodyl)] 5 mg tablet,delayed release (DR/EC) 5 mg PO ONCE Qty: 4 RF: 0 Discharge Instructions Additional Instructions: DSU Colonoscopy Post- Op Instructions Instructions for Everyone who is given Anesthesia: For your safety, please do the following for the next twenty-four (24) hours: *Do Not operate a motor vehicle (car, truck, motorcycle, etc.) *Do Not drink alcoholic beverages or use any recreational drugs for the first 24 hours or while taking pain medications. The medications in your body may have a reaction that can be dangerous. *Do Not make any important decisions or sign any important papers. Findings:x3 polyps mild diverticula Follow up: My office will send a letter with the results of the pathology in 2 to 3 weeks time and when we want you to repeat the colonoscopy- most likely 5yrs time. 1. No lifting over 20 pounds or strenuous activity for the first 24 hours after your procedure. After 24 hours there are no restrictions on your activity but you may feel fatigued for a few days. 2. After you arrive home you may have a light meal and return to your normal diet as you can tolerate it without feeling sick to your stomach. 3. You may have a bloated, gaseous feeling in your belly (abdomen) after a colonoscopy. Passing gas and belching will help. Walking or lying down on your left side with your knees flexed may relieve the discomfort. Call the office at [phone] (Office) or [phone] (Hospital) right away if you notice any of the following: a.Vomiting of blood or ?coffee ground stools?. b.Rectal bleeding 1Tbsp, blood clots or continuous bleeding. c.Severe belly (abdominal) pain. d.A hard distended belly (abdomen) and an inability to pass gas. 4. Please don?t expect to have a normal BM (bowel movement) for 2-3 days after your procedure. 5. If there are questions regarding the findings of your procedure, please contact your doctor 6. If you are unable to contact your doctor with a problem, contact the hospital at [phone]. 7. Continue all your regular medications unless directed otherwise. I understand the above instructions and have no questions. Signature of Patient or Adult Escort Name of Responsible Adult Escort Signature of Nurse Date/Time Activity:: see above Diet:: See above Discharge Orders Discharge Orders: Discharge Order (Routine); Ordered 11/21/21 Ordered By: Roseann Rojas DS: Diagnosis Discharge Diagnosis (1) IBS (irritable bowel syndrome): (2) Insulin dependent diabetes mellitus: (3) Chronic bronchitis: (4) Smoker: (5) Adenomatous colon polyp: Status: Acute (6) Diverticula of colon: Status: Acute
[2021-11-22 12:19] VITALS: BP 111/63; PULSE 95; RESP 16; TEMP 36.5; O2SAT 100
[2021-11-22] MEDS: Lactated Ringers 1,000 ML 80 ML IV (12:51)
--- NOTE | 2021-11-22 13:54 | W.ANESPRE ---
General Info Date of Service Date Performed: 11/22/21 Height: 5 ft 5 in Weight: 59.1 kg Body Mass Index (BMI): 21.7 Surgical Procedure: Operation Date: 11/22/21 11:50 Proposed Procedures Side Surgeon laisha Rojas, DO Meds Allergies and Home Medications Allergies Allergy/AdvReac Type Severity Reaction Status Date / Time bee venom protein (honey bee) Allergy Severe Anaphylaxis Verified 11/22/21 12:14 Penicillins Allergy Severe Anaphylaxsi Unverified 11/22/21 12:14 s erythromycin base AdvReac Intermediate VOMITING Unverified 11/22/21 12:14 tramadol AdvReac Intermediate Nausea Unverified 11/22/21 12:14 codeine AdvReac Unknown Other (See Unverified 11/22/21 12:14 [From Tylenol-Codeine] Comment) Home Medication Medication Instructions Recorded metformin [Glucophage] 1,000 mg PO BID 08/01/13 omeprazole 1 tab PO DAILY 12/06/16 Ozempic 0.5 mg SUBCUT QWEEK 11/21/19 acyclovir 400 mg PO BID 11/21/19 pravastatin 10 mg PO HS 11/21/19 acetaminophen [Tylophen] 500 mg PO Q6H PRN #60 cap 11/23/19 ibuprofen 200 mg capsule 200 mg PO Q6H PRN 07/08/21 epinephrine 0.3 mg IM ONCE PRN #1 ea 08/06/21 bisacodyl 5 mg tablet,delayed 5 mg PO ONCE #4 tab 11/14/21 release insulin glargine 100 unit/mL (3 25 unit SUBCUT HS ml 11/14/21 mL) subcutaneous pen polyethylene glycol 3350 17 238 g PO ONCE #238 g 11/14/21 gram/dose oral powder Current Visit Medications: Current Medications Generic Name Dose Route Start Last Admin Trade Name Freq PRN Reason Stop Dose Admin Hyoscyamine Sulfate 0.125 mg 11/21/21 18:05 Hyoscyamine 0.125 Mg Sl/Oral/Chew SL DIRECTED PRN Ringer's Solution 1,000 mls @ 80 mls/hr 11/22/21 06:00 11/22/21 12:51 IV 12/21/21 23:59 80 mls/hr INFUSION CODY Administration IV Miscellaneous Supplies 1 each 11/22/21 06:00 Iv Access IV 12/21/21 23:59 DIRECTED CODY Ondansetron HCl 4 mg 11/21/21 18:05 Ondansetron 4 Mg/2 Ml Vial IVP Q4H PRN PRN Nausea / Vomiting Sodium Chloride 0 ml 11/22/21 06:00 Normal Saline Flush 10 Ml Syr IV 12/21/21 23:59 PRN PRN Sodium Chloride 0 ml 11/22/21 06:00 Normal Saline 10 Ml Vial IJ 12/21/21 23:59 DIRECTED PRN Sterile Water 0 ml 11/22/21 06:00 Water,Injection,Sterile 10 Ml Vial IJ 12/21/21 23:59 DIRECTED PRN PFSH Active Problems Active Problems: Problem Status Onset Code Abrasion of cornea, right S05.01XA Bee sting reaction T63.441A Finger laceration S61.219A Encounter for removal of sutures Z48.02 Medical History Medical History Anger Chronic anxiety CHRONIC BRONCHITIS Chronic bronchitis DM Hoarseness IBS (irritable bowel syndrome) D predominant Insomnia Insulin dependent diabetes mellitus Intertrigo Necrobiosis lipoidica diabeticorum Overactive bladder Smoker Subclinical hypothyroidism Tendonitis Tobacco dependency Urinary frequency Vaginal dryness Surgical History Surgical History (Updated 11/22/21 @ 12:12 by Elina Talavera RN) Abdominal hysterectomy Hx of appendectomy Hx of cholecystectomy Trigger finger, left middle finger s/p release 11/23/2019 [place] teeth extracted Tobacco Smoking/Tobacco Use Status: Current every day Tobacco Type: cigarettes Alcohol Alcohol Intake: current Alcohol intake frequency: a few times a week Alcohol type: hard liquor Substance Use Substance use: Never Substance use type: does not use Details: new years geremias Vital Signs and Lab Results Vital Signs Most Recent Vital Signs in EMR: Most Recent Vital Signs Temp Pulse Resp BP Pulse Ox 36.5 C 95 H 16 111/63 100 11/22/21 12:19 11/22/21 12:19 11/22/21 12:19 11/22/21 12:19 11/22/21 12:19 Point of Care Results Point of Care Results: Finger Stick Blood Glucose 100 11/22/21 13:04 Lab Results Blood Type / Crossmatch: No Data to Display Complete Blood Count: No Data to Display Complete Metabolic Panel: Sodium Level 140 mmol/L (136-145) 11/04/21 16:50 11/04/21 Potassium Level 4.5 mmol/L (3.5-5.1) 11/04/21 16:50 11/04/21 Chloride Level 103 mmol/L (98-107) 11/04/21 16:50 11/04/21 Carbon Dioxide Level 31.1 mmol/L (21.0-32.0) 11/04/21 16:50 11/04/21 Blood Urea Nitrogen 8 mg/dL (7-18) 11/04/21 16:50 11/04/21 Creatinine 0.7 mg/dL (0.55-1.02) 11/04/21 16:50 11/04/21 Estimated GFR/1.73 m2 >= 60.00 (mL/min/1.73m2) 11/04/21 16:50 11/04/21 Calcium Level 9.6 mg/dL (8.5-10.1) 11/04/21 16:50 11/04/21 Albumin 3.9 g/dL (3.4-5.0) 11/04/21 16:50 11/04/21 Glucose Level 116 mg/dL (74-106) H 11/04/21 16:50 11/04/21 Liver Function Panel: Alanine Aminotransferase (ALT/SGPT) 41 U/L (14-59) 11/04/21 16:50 11/04/21 Aspartate Amino Transf (AST/SGOT) 25 U/L (15-37) 11/04/21 16:50 11/04/21 Coagulation Panel: No Data to Display Cardiac Panel: No Data to Display Arterial Blood Gas: No Data to Display Venous Blood Gas: No Data to Display Pancreas Panel: No Data to Display Thyroid Panel: No Data to Display Infectious Disease: Coronavirus (COVID-19)(PCR) Negative (Negative) 11/20/21 08:50 11/20/21 Coronavirus 2019 Source Nasal/Nares 11/20/21 08:50 11/20/21 Blood Cultures: No Data to Display Toxicology Panel: No Data to Display Panel: No Data to Display Anesthesia Assessment and Plan Anesthesia History Personal History: No History of Anesthesia Complications Family History: No Family History of Anesthesia Complications Exercise Tolerance Exercise Tolerance: Metabolic Equivalents>4 Pertinent Negatives Pertinent Negatives: No Symptoms of GERD, No Major Cardiovascular Symptoms or Complaints, No Major Pulmonary Symptoms or Complaints and No History of CVA/TIA Cardiac & Pulmonary Exam Cardiac Exam: Normal S1/S2 Heart Sounds Pulmonary Exam: Clear Bilateral Breath Sounds Implantable Cardiac Device Does patient have a Pacemaker or an ICD?: No Airway Exam Known Difficult Airway: No Mallampati Class: 1 Mouth Opening: Normal (> 3cm) Thyromental Distance: Greater than 3 cm Neck Range of Motion: Full ROM Neck Circumference: Normal Teeth Condition: Normal Dentition ASA Classification ASA Score: ASA 2 Emergency Case?: No NPO Status NPO Status: NPO Clears >2 hours, Solids >8 hours Status Status: History of Hysterectomy Anesthesia Plan Resuscitation Status: Full Code Anesthesia Technique: General Anesthesia Airway Planned: Natural Airway Monitors Used: Standard Monitors
[2021-11-22 13:55] VITALS: BMI 21.7
--- NOTE | 2021-11-22 14:24 | BOWEL_PTH ---
PATIENT: Maddi Anthony LOC: [facility] U#:[id number] AGE/SX: 51/F ROOM: RE11/22/[address]: Roseann Rojas : 1970 BED: DIS: 11/22/2021 SPEC #: [id number] RECD: 11/22/21 18:01 STATUS: OPAL RE #: [id number] INGE: 11/22/21 14:[address]: Roseann Rojas DEPT: Surgical Specimen RECD BY: Coreen Marinelli ENTERED: 11/22/21 18:01 SP TYPE: Bowel OTHR DR: Yoselin Alfaro Tissues: 1 - BIOPSY BOWEL 2 - BIOPSY BOWEL 3 - BIOPSY BOWEL Procedures: GROSS AND MICRO LEVEL 4 Comments: [id number]
--- NOTE | 2021-11-22 14:48 | W.ANESPOSTOP ---
Postoperative Evaluation Date, Time and Location Date Performed: 11/22/21 Time Performed: 14:49 Patient Location: Day Surgery Unit Vital Signs Most Recent Imported Vital Signs: Most Recent Vital Signs Temp Pulse Resp BP Pulse Ox 36.5 C 95 H 16 111/63 100 11/22/21 12:19 11/22/21 12:19 11/22/21 12:19 11/22/21 12:19 11/22/21 12:19 Most Recent Manually Entered Vital Signs: Adult Blood Pressure: 142/75 Heart Rate: 87 Respirations: 12 Oxygen Saturation (%): 98 Temperature (C): 36.3 C Pain Score (0-10 Scale): 2 Pain Score Most Recent Pain Score: Most Recent Pain Score Pain Level 0 11/22/21 12:19 Assessment Mental Status: Awake (Alert & Oriented to Patient Baseline) Airway and Respiratory Function: Patent airway with normal (patient baseline) respiratory exam Cardiovascular Function: Hemodynamically Stable Hydration Status: Adequately Hydrated Nausea & Vomiting: No Nausea or Vomiting Pain: Pt. Denies Any Pain Peripheral Nerve Block: Patient did not receive a nerve block
[2021-11-22 14:50] VITALS: BP 142/75; PULSE 87; RESP 12; TEMPC 36.3; O2SAT 98
[2021-11-22 15:03] VITALS: BP 142/85; PULSE 86; RESP 16; TEMP 36.1; O2SAT 98
--- NOTE | 2021-11-22 15:22 | W.ANESPOSTOP ---
Postoperative Evaluation Date, Time and Location Date Performed: 11/22/21 Time Performed: 15:36 Patient Location: Day Surgery Unit Vital Signs Most Recent Imported Vital Signs: Most Recent Vital Signs Temp Pulse Resp BP Pulse Ox 36.1 C L 86 16 142/85 H 16 L 11/22/21 15:03 11/22/21 15:03 11/22/21 15:03 11/22/21 15:03 11/22/21 15:03 Most Recent Vital Signs Temp Pulse Resp BP Pulse Ox 36.5 C 95 H 16 111/63 100 11/22/21 12:19 11/22/21 12:19 11/22/21 12:19 11/22/21 12:19 11/22/21 12:19 Most Recent Manually Entered Vital Signs: Adult Blood Pressure: 142/85 Heart Rate: 86 Respirations: 16 Oxygen Saturation (%): 98 Temperature (C): 36.1 C Pain Score (0-10 Scale): 0 Pain Score Most Recent Pain Score: Most Recent Pain Score Pain Level 10 11/22/21 15:03 Assessment Mental Status: Awake (Alert & Oriented to Patient Baseline) Airway and Respiratory Function: Patent airway with normal (patient baseline) respiratory exam Cardiovascular Function: Hemodynamically Stable Hydration Status: Adequately Hydrated Nausea & Vomiting: No Nausea or Vomiting Pain: Pt. Denies Any Pain Peripheral Nerve Block: Patient did not receive a nerve block
[2021-11-22 15:26] VITALS: BP 123/60; PULSE 79; RESP 16; TEMP 36.5; O2SAT 100
[2021-11-22 15:37] VITALS: BP 142/85; PULSE 86; RESP 16; TEMPC 36.1; O2SAT 98
== END 2021-11-22 15:47 | disposition home or self-care (01) ==
PROVIDERS: PCP Nurse Practitioner; Visit Provider Surgery
PROC: 0DJD8ZZ Inspection of Lower Intestinal Tract, Via Natural or Artificial Opening Endoscopic (ICD-10-PCS; CPT 45378; principal; 2021-11-22 11:45)
DX: Z12.11 Encounter for screening for malignant neoplasm of colon (principal); D12.4 Benign neoplasm of descending colon; K57.30 Diverticulosis of large intestine without perforation or abscess without bleeding; F17.210 Nicotine dependence, cigarettes, uncomplicated; K58.0 Irritable bowel syndrome with diarrhea; E11.9 Type 2 diabetes mellitus without complications; D12.5 Benign neoplasm of sigmoid colon
CPT/HCPCS: 45384; 45380; 88305; J2001

== ENCOUNTER 2022-01-13 01:16 | Outpatient (CLI) | payer BC, SELFPAY ==
--- NOTE | 2022-01-13 | DI.MAMMO_ITS ---
Exam(s) MAMMO SCREENING EXAM: MAMMO SCREENING CLINICAL HISTORY: SCREENING, Z12.39 TECHNIQUE: Mammograms were interpreted according to the usual protocol including computer analysis w [employer] CAD system, tomosynthesis and C-view imaging. COMPARISON: 2011 through 2019 FINDINGS: The breasts are composed of scattered fibroglandular densities, Breast Density category B. No suspicious masses or suspicious microcalcifications are seen. No skin thickening or abnormal axillary lymph nodes are seen. There has been no significant change from prior exams. IMPRESSION: BI-RADS Category 1, Negative mammogram Yearly screening mammography is recommended. Breast Density - Category B, scattered fibroglandular densities. A negative radiographic report should not delay biopsy if a dominant or clinically suspicious mass is present. Up to ten percent of cancers are not identified on mammography. A negative report may reinforce clinical impression. Adenosis and dense breasts may obscure an underlying neoplasm. False positive reports average 6 to 10%. Patient will receive a letter notifying them of these results.
== END 2022-01-13 01:36 ==
PROVIDERS: PCP Nurse Practitioner; Visit Provider Nurse Practitioner
DX: Z12.31 Encounter for screening mammogram for malignant neoplasm of breast (principal)
CPT/HCPCS: 77063; 77067

== ENCOUNTER 2022-02-05 16:44 | Outpatient (REF) | payer BC, SELFPAY ==
[2022-02-05 19:57] LABS: COMMENT (LAB VIEW ONLY) 76.79 mg/dL; Microalb ug/mg Crea 10.7 ug/mg Cr
== END 2022-02-05 16:45 | disposition home or self-care (01) ==
LOC: NCHCN 16:44
PROVIDERS: PCP Nurse Practitioner; Visit Provider Nurse Practitioner Family
DX: E11.9 Type 2 diabetes mellitus without complications (principal)
CPT/HCPCS: 82043; 82570

== ENCOUNTER 2022-04-20 17:51 | Emergency (ER) | payer BC, SELFPAY ==
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
[2022-04-20 17:57] VITALS: BP 139/84; PULSE 96; RESP 16; TEMP 36.7; O2SAT 97
[2022-04-20] MEDS: oxyCODONE 5 MG TAB PO (18:15)
[2022-04-20] MEDS: Silver sulfaDIAZINE 1% 25 GM TUBE TP (18:43)
== END 2022-04-20 18:58 | disposition home or self-care (01) ==
PROVIDERS: Emergency Provider Physician Assistant; PCP Nurse Practitioner
DX: T23.232A Burn of second degree of multiple left fingers (nail), not including thumb, initial encounter (principal); T23.132A Burn of first degree of multiple left fingers (nail), not including thumb, initial encounter; T22.112A Burn of first degree of left forearm, initial encounter; T22.111A Burn of first degree of right forearm, initial encounter; W36.8XXA Explosion and rupture of other gas cylinder, initial encounter; E11.9 Type 2 diabetes mellitus without complications
CPT/HCPCS: 99283

== ENCOUNTER 2022-04-25 18:36 | Outpatient (REF) | payer BC, SELFPAY ==
[2022-04-25 20:26] LABS: TSH (W/Ref FT4) 0.76 uIU/mL (0.36-3.74)
== END 2022-04-25 18:37 | disposition home or self-care (01) ==
LOC: NCHCN 18:36
PROVIDERS: PCP Nurse Practitioner; Visit Provider Family Medicine
DX: E05.90 Thyrotoxicosis, unspecified without thyrotoxic crisis or storm (principal)
CPT/HCPCS: 84443

== ENCOUNTER 2023-05-07 16:38 | Outpatient (REF) | payer SELFPAY ==
[2023-05-07 15:24] LABS: Abs Immature Grans 0.02 10^3/uL (0.0-0.06); Absolute Basophil Count 0.04 10^3/uL (0.0-0.2); Absolute Lymphocyte Count 2.27 10^3/uL (1.2-3.4); Absolute Monocyte Count 0.69 10^3/uL (0.1-0.8); Absolute Neutrophil Count 6.05 10^3/uL (1.2-6.7); Anion Gap 8.6 mmol/L (3-11); BUN 9 mg/dL (7-18); Basophils % 0.4; CO2 30.4 mmol/L (21.0-32.0); CREATININE 0.6 mg/dL (0.55-1.02); Chloride 100 mmol/L (98-107); Eosinophils % 1.1; Estimated GFR 105.94 (mL/min/1.73m2); Glucose 171 mg/dL (74-106); HCT 40.3 % (36.0-46.0); Immature Grans % 0.2; Lymphocytes % 24.8; MCH 33.6 pg (27.0-33.0); MCHC 34.7 % (32.0-36.0); MCV 97 fL (80-95); MPV 10.3 fL (8.0-11.0); Monocytes % 7.5; Platelet Count 305 10^3/uL (130-400); Potassium 4.9 mmol/L (3.5-5.1); RBC 4.17 10^6/uL (3.93-5.22); RDW 12.8 % (11.7-14.6); RDW-SD 45.7 fL; Sodium 139 mmol/L (136-145); WBC 9.17 10^3/uL (4.4-10.8)
--- OUTSIDE RECORDS SUMMARY | 2023-05-07 16:47 | XMS_ITS | Summary of Care ---
Author Name Unknown Organization [facility] Address [address] [place] [address]- Care Team Providers Care Legal Consultant Name Role Phone Unassigned, Out of State Primary Care Physician Unavailable Encounter [facility] [id number] Date(s): 10/26/21 - 10/26/21 [facility] [address] [place] [address]- Discharge Disposition: HOME OR SELF CARE Attending Physician: Samuel Mancilla DO Admitting Physician: UNASSIGNED , ER DOCTOR Allergies, Adverse Reactions, Alerts Substance Reaction Severity Status azithromycin throwing up Mild Active penicillin anaphalaxis Severe Active Medications ibuprofen 600 mg oral tablet 600 mg, = 1 tab(s), PO, q6hr, PRN for pain, X 7 day(s), # 20 tab(s), 0 Refill(s), 10/26/21 3:59:00 EST, 1 Start Date: 10/26/21 Stop Date: 11/02/21 Status: Ordered Tessalon 200 mg oral capsule 200 mg =, 1 cap(s), PO, 3xDaily, X 7 day(s), # 21 cap(s), 0 Refill(s), 1 Start Date: 10/26/21 Stop Date: 11/02/21 Status: Ordered Procedures Procedure Date Related Diagnosis Body Site Status ROUTINE VENIPUNCTURE 10/26/21 Comp leted Appendectomy Completed Gall bladder removal Comp leted Hysterectomy Completed Results Laboratory List Name Date BMP 10/26/21 CBC with Differential 10/26/21 Troponin one time 10/26/21 Most recent to oldest [Reference Range]: 1 eGFR (nonAfrAm) [>=60 mL/min/1.73 m2] >6 0 mL/min/1.73 m2 (10/26/21 2:41 AM) eGFR (AfrAm) [>=60 mL/min/1.73 m2] >60 m L/min/1.73 m2 (10/26/21 2:41 AM) BRODY Suspected N/A 1 (10/26/21 2:41 AM) eCrCl (Drug Dosing) [70-120 mL/min] 81 m L/min 2 (10/26/21 2:41 AM) Basophil, Abs [0.0-0.2 th/uL] 0.0 th/uL (10/26/21 2:41 AM) BUN [6-26 mg/dL] 9 mg/dL (10/26/21:41 AM) Anion Gap [5-16] 9 (10/26/21:41 AM) Baso [0.0-2.0 %] 0.4 % (10/26/21 2:41 AM) Calcium [8.5-10.1 mg/dL] 8.8 mg/dL (10/26/21 2:41 AM) Chloride [98-109 mmol/L] 102 mmol/L (10/26/21 2:41 AM) Carbon Dioxide [21-32 mmol/L] 26 mmol/L (10/26/21:41 AM) Creatinine [0.300-1.300 mg/dL] 0.720 mg/ dL (10/26/21 2:41 AM) Eos [0.0-6.0 %] 1.6 % (10/26/21 2:41 AM) Eosinophil, Abs [0.0-0.4 th/uL] 0.2 th/u L (10/26/21:41 AM) Glucose [70-99 mg/dL] 189 mg/dL *HI* (10/26/21 2:41 AM) HCT [37.0-47.0 %] 34.8 % *LOW* (10/26/21:41 AM) HGB [12.0-16.0 g/dL] 11.9 g/dL *LOW* (10/26/21 2:41 AM) Lymphs [24.0-44.0 %] 13.3 % *LOW* (10/26/21 2:41 AM) MCH [26.0-32.0 pg] 32.1 pg *HI* (10/26/21 2:41 AM) MCHC [31.0-36.0 g/dL] 34.3 g/dL (10/26/21 2:41 AM) MCV [80.0-100.0 fL] 93.7 fL (10/26/21 2:41 AM) [place] [0.0-10.0 %] 5.9 % (10/26/21 2:41 AM) MPV [6.5-13.0 fL] 7.4 fL (10/26/21 2:41 AM) Segs [45.0-75.0 %] 78.8 % *HI* (10/26/21 2:41 AM) PLT [140-450 th/uL] 305 th/uL (10/26/21 2:41 AM) Potassium [3.5-5.1 mmol/L] 4.1 mmol/L (10/26/21 2:41 AM) RBC [3.60-5.40 mill/uL] 3.72 mill/uL (10/26/21 2:41 AM) RDW [11.5-14.5 %] 13.5 % (10/26/21 2:41 AM) Sodium [136-145 mmol/L] 137 mmol/L (10/26/21 2:41 AM) Troponin-I [0.000-0.028 ng/mL] 0.000 ng/ mL (10/26/21 2:41 AM) WBC [4.5-11.0 th/uL] 13.0 th/uL *HI* (10/26/21 2:41 AM) BUN/Creatinine [7-34] 13 (10/26/21 2:41 AM) Lymph, Abs [0.7-4.0 th/uL] 1.7 th/uL (10/26/21 2:41 AM) Monocyte, Abs [0.0-0.8 th/uL] 0.8 th/uL (10/26/21 2:41 AM) Neutrophil, Abs [1.4-8.5 th/uL] 10.2 th/ uL *HI* (10/26/21 2:41 AM) 1Result Comment: Unable to calculate; this is the first serum creatinine (SCr) within 7 days 2Result Comment: Calculated by Discern Expert using the Cockcroft-Gault formula and the patients IBWof 56.50. Vital Signs Most recent to oldest [Refer ence Range]: 1 2 Temperature Oral [96.4-99.1 DegF] 98.6 D egF (10/26/21 1:56 AM) Pulse Rate [60-110 bpm] 85 bpm (10/26/21 4:00 AM) 93 bpm (10/26/21 1:56 AM) Respiratory Rate [12-20 br/min] 16 br/mi n (10/26/21 4:00 AM) 16 br/min (10/26/21 1:56 AM) Mean Arterial Pressure, Cuff 81 mmHg (10/26/21 4:00 AM) BP Obtained By Blood Pressure by Lionel hawkins (10/26/21 4:00 AM) Blood Pressure by Machine (10/26/21 1:56 AM) Weight, Actual kg 65 kg (10/26/21 1:56 AM) Weight, Actual kg - manual 65 kg (10/26/21 1:56 AM) Height cm 165.1 cm (10/26/21 1:56 AM) 165.1 cm (10/26/21 1:55 AM) Height Inches 65 inch(es) (10/26/21 1:56 AM) 65 inch(es) (10/26/21 1:55 AM) Body Surface Area 1.7265 (10/26/21 1:56 AM) Body Mass Index (BMI) 23.8 kg/m2 (10/26/21 1:56 AM) [place] Body Weight Calculated 57 kg (10/26/21 1:56 AM) 57 kg (10/26/21 1:55 AM) Blood Pressure [90-120/60-90 mmHg] 108/68mmHg (10/26/21 4:00 AM) 110/55mmHg (10/26/21 1:56 AM) Social History Social History Type Response Sex
== END 2023-05-07 16:39 | disposition home or self-care (01) ==
LOC: LBN 16:38
PROVIDERS: PCP Nurse Practitioner; Visit Provider Physician Assistant Medical
DX: R19.7 Diarrhea, unspecified (principal)
CPT/HCPCS: 80048; 85025

== ENCOUNTER 2023-05-08 13:58 | Outpatient (REF) | payer SELFPAY ==
[2023-05-09 00:21] LABS: Campylobacter PCR Negative (Negative); Salmonella PCR Negative (Negative); Shiga Toxin PCR Negative (Negative); Shigella/Enteroinvasive Ecoli Negative (Negative)
== END 2023-05-08 13:59 | disposition home or self-care (01) ==
LOC: LBN 13:58
PROVIDERS: PCP Nurse Practitioner; Visit Provider Physician Assistant Medical
DX: R19.7 Diarrhea, unspecified (principal)
CPT/HCPCS: 87329; 87505; 87177

== ENCOUNTER 2023-06-22 14:55 | Outpatient (CLI) | payer MEDICAID, SELFPAY ==
--- NOTE | 2023-06-22 14:11 | DI.RAD_ITS ---
Exam(s) XR WRIST RT COMPLETE EXAM: XR WRIST RT COMPLETE CLINICAL HISTORY: RT WRIST PAIN, M25.531, RECCURENT PAIN AND SWELLING. TECHNIQUE: 2D digital imaging was performed. Three views. COMPARISON: No exams were available for comparison FINDINGS: BONES: No acute fracture is present. No bony destructive lesion is seen. JOINTS: The carpal bones are normally aligned. Minimal degenerative changes. SOFT TISSUE: Swelling. IMPRESSION: Soft tissue swelling. No acute bony abnormality. DATA REPOSITORY: RADIATION DOSE DELIVERED:
== END 2023-06-22 15:15 ==
LOC: DI 14:56
PROVIDERS: PCP Nurse Practitioner; Visit Provider Family Medicine
DX: M25.531 Pain in right wrist (principal); R22.31 Localized swelling, mass and lump, right upper limb
CPT/HCPCS: 73110

== ENCOUNTER 2023-07-10 11:25 | Emergency (ER) | payer MEDICAID, SELFPAY ==
[2023-07-10 12:06] VITALS: BP 137/84; PULSE 87; RESP 21; TEMP 37.1; O2SAT 100
[2023-07-10 14:57] LABS: Abs Immature Grans 0.04 10^3/uL (0.0-0.06); Absolute Basophil Count 0.02 10^3/uL (0.0-0.2); Absolute Eosinophil Count 0.11 10^3/uL (0.0-0.7); Absolute Lymphocyte Count 2.42 10^3/uL (1.2-3.4); Absolute Monocyte Count 0.67 10^3/uL (0.1-0.8); Basophils % 0.2; HCT 42.5 % (36.0-46.0); HGB 14.1 g/dL (11.2-15.7); Immature Grans % 0.4; Lymphocytes % 21.9; MCH 33.1 pg (27.0-33.0); MCHC 33.2 % (32.0-36.0); MCV 100 fL (80-95); MPV 8.8 fL (8.0-11.0); Monocytes % 6.1; Neutrophils % 70.4; Platelet Count 339 10^3/uL (130-400); RBC 4.26 10^6/uL (3.93-5.22); RDW 12.3 % (11.7-14.6); RDW-SD 44.9 fL; WBC 11.06 10^3/uL (4.4-10.8)
[2023-07-10 14:58] LABS: Absolute Neutrophil Count 7.79 10^3/uL (1.2-6.7)
--- NOTE | 2023-07-10 14:58 | W.ED.GENAD ---
Discharge Plan Disposition Patient Disposition: Home Condition: Stable Discharge Details Clinical Impression: Acute pain of left wrist, Tenosynovitis, Hyperglycemia Primary Care Provider: ENOCH CALL ED Provider: Kvng Griffin Home Meds and New Rx's Prescriptions: New prednisone 5 mg tablet See Rx Instructions .ROUTE .COMPLEX Qty: 15 0RF Rx Instructions: Take 2 tablets (10 mg) PO daily for 5 days and then 1 tablet (5 mg) PO daily for 5 days. Continued ibuprofen 200 mg capsule 200 mg PO Q6H PRN fluticasone propionate [Flonase Allergy Relief] 50 mcg/actuation spray,suspension 1 spray intranasal BID Rx Instructions: administer into each nostril insulin glargine [Lantus Solostar U-100 Insulin] 100 unit/mL (3 mL) insulin pen 10 unit subcut HS omeprazole 20 mg capsule,delayed release(DR/EC) 20 mg PO DAILY Ozempic 0.25 mg or 0.5 mg(2 mg/1.5 mL) pen injector 1 mg SUBCUT QWEEK Rx Instructions: TAKES QWEEKLY ON SATURDAYS insulin glargine [Basaglar KwikPen U-100 Insulin] 100 unit/mL (3 mL) insulin pen 15 unit subcut QAM diclofenac sodium 1 % gel 2 g topical QID Rx Instructions: apply to single elbow, wrist or hand; for hand includes palm/fingers/back of hand metformin [Glucophage] 1,000 MG tablet 1,000 mg PO BID acyclovir 400 mg Tablet 400 mg PO BID pravastatin 10 mg Tablet 10 mg PO HS acetaminophen [Tylophen] 500 mg capsule 500 mg PO Q6H PRN (Reason: postoperative pain) Qty: 60 1RF epinephrine 0.3 mg/0.3 mL auto-injector 0.3 mg IM ONCE PRN (Reason: anaphylaxis) Qty: 1 0RF Rx Instructions: as a single dose furosemide 20 mg tablet 20 mg PO DAILY PRN (Reason: Edema) Patient Comments: 1 tablet by mouth once a day Rx Instructions: PRN FOR BLE SWELLING Discharge Instructions Additional Instructions: Your glucose was significantly elevated today. Your glucose level was 356. Please be sure to take your insulin as prescribed. Please take prednisone as prescribed. You received initial dose here in the emergency department. Your next dose is tomorrow. Please note that this can affect your glucose level. Please follow-up with orthopedics as directed by Dr. Caruso. Return to the ER immediately for any worsening or new concerning symptoms. Referrals: [facility] [Provider Group] Medical Decision Making 1500 --53-year-old female with insulin-dependent diabetes here with 6 weeks of right wrist pain and swelling despite NSAIDs and splinting. Wrist is swollen and tender, warm to the touch. Concern for potential septic arthritis versus other inflammatory arthritis. I called and spoke with Dr. Caruso, on-call orthopedics, discussed ED presentation course, he has evaluated the patient in the emergency department. Screening labs reviewed and mild leukocytosis noted. ESR is normal. Chemistry and CRP pending. --Labs reviewed and ESR normal. Glucose is elevated at 356. No anion gap acidosis 1520 --patient was seen by Dr. Caruso and arthrocentesis attempted. No significant joint effusion identified. Dr. Ambriz feels likely tenosynovitis. He recommends discharge with outpatient follow-up as scheduled in his clinic next week. He recommends treating with prednisone 10 mg daily x5 days and then 5 mg daily for 5 additional days. Results were discussed with the patient. She understands the need to take insulin and monitor blood sugar closely. Usual customary discharge instructions were reviewed. HPI General Mode of arrival: ambulatory. Date/Time Provider Initiated Documentation: 07/10/23 12:38. Limitations to Documentation: no limitations. Information obtained by: patient. HPI Narrative: 53-year-old female with history of insulin-dependent diabetes, smoker, presents with chief complaint of left wrist pain. Patient notes left wrist pain and swelling over the past 6 weeks. Patient been seen by primary care physician as well as urgent care. She was provided wrist brace which has not been helping. NSAIDs not helping. She does note when she was on prednisone burst pain was significantly better. Patient has a follow-up appointment with orthopedics on 829 but notes pain is now unbearable. Related Data Home Medications Medication Instructions Recorded Confirmed metformin 1,000 mg tablet 1,000 mg PO BID 08/01/13 07/10/23 (Glucophage) acyclovir 400 mg tablet 400 mg PO BID 11/21/19 07/10/23 pravastatin 10 mg tablet 10 mg PO HS 11/21/19 07/10/23 acetaminophen 500 mg capsule 500 mg PO Q6H PRN postoperative 11/23/19 07/10/23 (Tylophen) pain #60 caps ibuprofen 200 mg capsule 200 mg PO Q6H PRN 07/08/21 07/10/23 epinephrine 0.3 mg/0.3 mL 0.3 mg (0.3 mL) IM ONCE PRN 08/06/21 07/10/23 injection, auto-injector anaphylaxis #1 ea diclofenac sodium 1 % topical gel 2 g topical QID 06/30/23 07/10/23 fluticasone propionate 50 1 spray intranasal BID 06/30/23 07/10/23 mcg/actuation nasal spray,suspension (Flonase Allergy Relief) insulin glargine 100 unit/mL (3 15 unit subcut QAM 06/30/23 07/10/23 mL) subcutaneous pen (Basaglar KwikPen U-100 Insulin) insulin glargine 100 unit/mL (3 10 unit subcut HS 06/30/23 07/10/23 mL) subcutaneous pen (Lantus Solostar U-100 Insulin) omeprazole 20 mg capsule,delayed 20 mg PO DAILY 06/30/23 07/10/23 release semaglutide 0.25 mg or 0.5 mg (2 1 mg subcut QWEEK 06/30/23 07/10/23 mg/1.5 mL) subcutaneous pen injector (Ozempic) furosemide 20 mg tablet 20 mg PO DAILY PRN Edema 07/10/23 07/10/23 prednisone 5 mg tablet See Rx Instructions .Route 07/10/23 .COMPLEX #15 tabs Previous Rx's Medication Instructions Recorded acetaminophen 500 mg capsule 500 mg PO Q6H PRN postoperative 11/23/19 (Tylophen) pain #60 caps epinephrine 0.3 mg/0.3 mL 0.3 mg (0.3 mL) IM ONCE PRN 08/06/21 injection, auto-injector anaphylaxis #1 ea prednisone 5 mg tablet See Rx Instructions .Route 07/10/23 .COMPLEX #15 tabs Allergies Allergy/AdvReac Type Severity Reaction Status Date / Time bee venom protein (honey bee) Allergy Severe Anaphylaxis Verified 07/10/23 12:08 Penicillins Allergy Severe Anaphylaxsi Unverified 07/10/23 12:08 s erythromycin base AdvReac Intermediate VOMITING Unverified 07/10/23 12:08 tramadol AdvReac Intermediate Nausea Unverified 07/10/23 12:08 codeine AdvReac Unknown Other (See Unverified 07/10/23 12:08 [From Tylenol-Codeine] Comment) General Stated Complaint: Orthopedic MYLES: 4 Review of Systems Constitutional Constitutional: Denies fever(s) Musculoskeletal Musculoskeletal: Reports as per HPI [facility] All Active Problems (Updated 07/10/23 @ 15:21 by Kvng Griffin MD) Acute pain of left wrist (Acute) Tenosynovitis (Acute) Hyperglycemia (Acute) Diverticula of colon (Acute) Moderate disease confined to the sigmoid colon. Adenomatous colon polyp (Acute) Abrasion of cornea, right (Acute) Bee sting reaction (Acute) Medical History Anger Chronic anxiety CHRONIC BRONCHITIS Chronic bronchitis DM Hoarseness IBS (irritable bowel syndrome) D predominant Insomnia Insulin dependent diabetes mellitus Intertrigo Necrobiosis lipoidica diabeticorum Overactive bladder Smoker Subclinical hypothyroidism Tendonitis Tobacco dependency Urinary frequency Vaginal dryness Surgical History Abdominal hysterectomy History of colonoscopy (~11/22/21) Hx of appendectomy Hx of cholecystectomy Trigger finger, left middle finger s/p release 11/23/2019 [place] teeth extracted Family History Maternal Grandmother Myocardial infarct Social History Smoking/Tobacco Use Status: Current every day Tobacco Type: cigarettes Smoking risk assessment performed?: Yes Alcohol Intake: current Alcohol Intake frequency: a few times a week Alcohol type: hard liquor Drug use: Never Substance use type: does not use Details: new years geremias Housing: apartment Do you feel safe at home: Yes Do you feel safe in your relationship?: Yes Exam Cardio Rate: regular rate Rhythm: regular rhythm Extrem Left upper extremity: wrist Details: tenderness, swelling, abnormal ROM Details: pain with active ROM Details: with extension and with flexion and warmth Course Vital Signs Vital signs: Vital Signs Temperature 37.1 C 07/10/23 12:06 Pulse 87 07/10/23 12:06 Respiratory Rate 21 07/10/23 12:06 Blood Pressure 137/84 07/10/23 12:06 Pulse Oximetry 100 07/10/23 12:06 Temperature 37.1 C 07/10/23 12:06 Temperature Source Temporal Artery Scan 07/10/23 12:06 Pulse 87 07/10/23 12:06 Respiratory Rate 21 07/10/23 12:06 Blood Pressure 137/84 07/10/23 12:06 Blood Pressure Position Sitting 07/10/23 12:06 Pulse Oximetry 100 07/10/23 12:06 Oxygen Delivery Method Room Air 07/10/23 12:06 Oxygen Flow Rate 0 07/10/23 12:06 Pain Level 10 07/10/23 12:06
[2023-07-10 15:07] LABS: ESR 8 mm/hr (0-30)
[2023-07-10 15:17] LABS: Anion Gap 7.1 mmol/L (3-11); BUN 11 mg/dL (7-18); C-Reactive Protein 0.23 mg/dL (0.0-0.3); CO2 30.9 mmol/L (21.0-32.0); CREATININE 0.8 mg/dL (0.55-1.02); Calcium 9.2 mg/dL (8.5-10.1); Chloride 97 mmol/L (98-107); Estimated GFR 86.96 (mL/min/1.73m2); Glucose 356 mg/dL (74-106); Potassium 4.5 mmol/L (3.5-5.1); Sodium 135 mmol/L (136-145)
[2023-07-10] MEDS: predniSONE 10 MG TAB PO (15:26)
[2023-07-10 15:29] VITALS: BP 150/88; PULSE 96; TEMP 36.5; O2SAT 97
[2023-07-10 15:31] VITALS: BP 150/88; PULSE 85; RESP 19; O2SAT 97
== END 2023-07-10 15:46 | disposition home or self-care (01) ==
PROVIDERS: Emergency Provider Student in an Organized Health Care Education/Training Program; PCP Nurse Practitioner Family
DX: E11.65 Type 2 diabetes mellitus with hyperglycemia (principal); M65.132 Other infective (teno)synovitis, left wrist
CPT/HCPCS: 80048; 85652; 99283; 85025; 86140; 99284; J7512

== ENCOUNTER → 2023-08-03 03:12 | Outpatient (CLI) | payer MEDICAID, SELFPAY ==
--- NOTE | 2023-08-03 14:45 | DI.MRI_ITS ---
Exam(s) MR UPPER JOINT RT WO EXAM: MR UPPER JOINT RT WO CLINICAL HISTORY: eval R wrist pain and swelling, M25.531. TECHNIQUE: Multiplanar multisequence MRI was performed. COMPARISON: Plain films 22 June 2023 FINDINGS: BONES: There is no fracture or contusion pattern. JOINTS: There is a small amount of fluid in the radial carpal joint and surrounding the carpal bones. TENDONS: Flexors: Unremarkable. Extensors: Unremarkable. MUSCLES: Unremarkable. MEDIAN NERVE: Unremarkable on this noncontrast examination. SOFT TISSUES: Unremarkable. LIGAMENTS: Unremarkable. TRIANGULAR FIBROCARTILAGE: Unremarkable. IMPRESSION: Mild joint effusion. No bone or tendon abnormality identified. DATA REPOSITORY:
== END ==
PROVIDERS: PCP Nurse Practitioner Family; Visit Provider Student in an Organized Health Care Education/Training Program
DX: M25.531 Pain in right wrist
CPT/HCPCS: 73221

== ENCOUNTER 2023-09-07 14:12 | Outpatient (CLI) | payer MEDICAID, SELFPAY ==
[2023-09-07 21:43] LABS: Rheumatoid Factor 8.7 IU/mL (<12.0)
[2023-09-08 10:16] LABS: dsDNA Ab, IgG <12.3 IU/mL (<30.0)
[2023-09-08 11:38] LABS: Lyme Ab w Rflx to Lyme Confirm Negative (Negative)
[2023-09-08 13:42] LABS: ANA Interpretation Negative (Negative)
[2023-09-09 16:31] LABS: Anaplasma phagocytophilum Negative (Negative); B. miyamotoi PCR Negative (Negative); Babesia divergens/MO-1 Negative (Negative); Babesia duncani Negative (Negative); Babesia microti Negative (Negative); Ehrlichia chaffeensis Negative (Negative); Ehrlichia ewingii/canis Negative (Negative); Ehrlichia muris eauclairensis Negative (Negative)
== END 2023-09-07 14:13 | disposition home or self-care (01) ==
LOC: LBO 14:15
PROVIDERS: PCP Nurse Practitioner Family; Visit Provider Student in an Organized Health Care Education/Training Program
DX: M65.9 Synovitis and tenosynovitis, unspecified (principal)
CPT/HCPCS: 36415; 87798; 86038; 86140; 86225; 86431; 86618

== ENCOUNTER 2023-12-08 18:42 | Outpatient (REF) | payer MEDICAID, SELFPAY ==
[2023-12-08 19:37] LABS: Abs Immature Grans 0.02 10^3/uL (0.0-0.06); Absolute Basophil Count 0.01 10^3/uL (0.0-0.2); Absolute Eosinophil Count 0.12 10^3/uL (0.0-0.7); Absolute Monocyte Count 0.49 10^3/uL (0.1-0.8); Basophils % 0.1; Eosinophils % 1.4; HCT 38.9 % (36.0-46.0); HGB 13.4 g/dL (11.2-15.7); Immature Grans % 0.2; Lymphocytes % 27.1; MCH 32.7 pg (27.0-33.0); MCHC 34.4 % (32.0-36.0); MCV 95 fL (80-95); MPV 9.4 fL (8.0-11.0); Monocytes % 5.5; Neutrophils % 65.7; Platelet Count 357 10^3/uL (130-400); RDW 11.8 % (11.7-14.6); RDW-SD 40.8 fL; WBC 8.84 10^3/uL (4.4-10.8)
[2023-12-08 19:40] LABS: ESR 9 mm/hr (0-30)
[2023-12-08 20:02] LABS: ALT 28 U/L (14-59); AST 17 U/L (15-37); Albumin 3.8 g/dL (3.4-5.0); Alkaline Phosphatase 62 U/L (46-116); Anion Gap 10.8 mmol/L (3-11); BUN 13 mg/dL (7-18); Bilirubin, Total 0.2 mg/dL (0.2-1.0); CO2 27.2 mmol/L (21.0-32.0); CREATININE 0.6 mg/dL (0.55-1.02); Calcium 9.7 mg/dL (8.5-10.1); Chloride 97 mmol/L (98-107); Estimated GFR 105.94 (mL/min/1.73m2); Glucose 248 mg/dL (74-106); Potassium 4.4 mmol/L (3.5-5.1); Sodium 135 mmol/L (136-145); TSH 0.69 uIU/mL (0.36-3.74); Total Protein 7.1 g/dL (6.4-8.2); Uric Acid 4.7 mg/dL (2.6-6.0)
[2023-12-08 20:13] LABS: Hemoglobin A1C 8.8 % (<5.7)
[2023-12-09 17:22] LABS: CRP, High Sensitivity <0.34 mg/L (See Note)
== END 2023-12-08 18:43 | disposition home or self-care (01) ==
LOC: NCHCN 18:42
PROVIDERS: PCP Nurse Practitioner Family; Visit Provider Nurse Practitioner Family
DX: R53.83 Other fatigue (principal); H52.7 Unspecified disorder of refraction; E11.65 Type 2 diabetes mellitus with hyperglycemia; M25.531 Pain in right wrist
CPT/HCPCS: 80053; 85652; 86141; 83036; 84443; 84550; 85025

== ENCOUNTER → 2023-12-16 16:41 | Outpatient (CLI) | payer MEDICAID, SELFPAY ==
--- NOTE | 2023-12-16 | DI.RAD_ITS ---
Exam(s) XR WRIST RT COMPLETE EXAM: XR WRIST RT COMPLETE CLINICAL HISTORY: PAIN RT WRIST, M25.531. TECHNIQUE: 2D digital imaging was performed. COMPARISON: CR XR WRIST RT COMPLETE from 06/22/2023 FINDINGS: 3 views No evidence of acute fracture nor dislocation. No significant ulnar variance. Scaphoid and scapholu sara distance normal. No obvious degenerative changes nor osseous lesions. First carpometacarpal ashley int is unremarkable. There is no radiopaque foreign body. IMPRESSION: No acute osseous findings in the wrist and no significant change compared to 06/22/2023. DATA REPOSITORY: RADIATION DOSE DELIVERED:
== END ==
PROVIDERS: PCP Nurse Practitioner Family; Visit Provider Physician Assistant Medical
DX: M25.531 Pain in right wrist (principal)
CPT/HCPCS: 73110

== ENCOUNTER 2024-01-04 08:40 | Emergency (ER) | payer MEDICAID, SELFPAY ==
[2024-01-04 08:56] VITALS: BP 119/57; PULSE 89; RESP 18; TEMP 36.3; O2SAT 100
--- NOTE | 2024-01-04 09:21 | ED.GENADUL_ITS ---
Discharge Plan Disposition Patient Disposition: Home Discharge Details Clinical Impression: Arthralgia of right wrist Primary Care Provider: ENOCH CALL ED Provider: Cameron Toney Home Meds and New Rx's Prescriptions: New prednisone 10 mg tablet 10 mg PO DAILY Qty: 5 0RF Continued ibuprofen 200 mg capsule 200 mg PO Q6H PRN insulin glargine [Lantus Solostar U-100 Insulin] 100 unit/mL (3 mL) insulin pen 12 unit subcut HS omeprazole 20 mg capsule,delayed release(DR/EC) 20 mg PO DAILY Ozempic 0.25 mg or 0.5 mg(2 mg/1.5 mL) pen injector 1 mg SUBCUT QWEEK Rx Instructions: TAKES QWEEKLY ON SATURDAYS diclofenac sodium 1 % gel 2 g topical QID Rx Instructions: apply to single elbow, wrist or hand; for hand includes palm/fingers/back of hand metformin [Glucophage] 1,000 MG tablet 1,000 mg PO BID acyclovir 400 mg Tablet 400 mg PO BID pravastatin 10 mg Tablet 10 mg PO HS acetaminophen [Tylophen] 500 mg capsule 500 mg PO Q6H PRN (Reason: postoperative pain) Qty: 60 1RF epinephrine 0.3 mg/0.3 mL auto-injector 0.3 mg IM ONCE PRN (Reason: anaphylaxis) Qty: 1 0RF Rx Instructions: as a single dose furosemide 20 mg tablet 20 mg PO DAILY PRN (Reason: Edema) Patient Comments: 1 tablet by mouth once a day Rx Instructions: PRN FOR BLE SWELLING No Action alprazolam 0.5 mg tablet 0.5 mg PO ONCE PRN (Reason: claustrophobia) Qty: 2 0RF Rx Instructions: Take within 3o minutes of MRI. Repeat x 1 if necessary. Discharge Instructions Instructions: Swollen Joint (ED) Additional Instructions: Please continue to wear wrist brace to help with support, take your normally prescribed medication along with the daily steroid just for the next 5 days. Please call the orthopedic clinic for arrangement of follow-up appointment Referrals: [facility] [Provider Group] (Call the office immediately for arrangement of follow-up appointment) Discharge Data Discharge Date/Time-TO BE ENTERED AT DEPARTURE: 01/04/24 09:49 HPI General Mode of arrival: ambulatory . Date/Time Provider Initiated Documentation: 02/19/24 09:03 . Limitations to Documentation: no limitations . Information obtained by: patient and RN notes reviewed . History of Present Illness 53 year old F presents to the emergency department with the chief complaint of Right wrist pain, described as moderate and severe, Patient started experiencing this month(s) and it has been constant. Medication improves symptom(s), (Somewhat improved after steroid injection) No exacerbating factors reported . Patient notes no other symptoms.. Patient did receive the following treatments prior to arrival, NSAID Related Data Home Medications Medication Instructions Recorded Confirmed metformin 1,000 mg tablet 1,000 mg PO BID 08/01/13 01/04/24 (Glucophage) acyclovir 400 mg tablet 400 mg PO BID 11/21/19 01/04/24 pravastatin 10 mg tablet 10 mg PO HS 11/21/19 01/04/24 acetaminophen 500 mg capsule 500 mg PO Q6H PRN postoperative 11/23/19 01/04/24 (Tylophen) pain #60 caps ibuprofen 200 mg capsule 200 mg PO Q6H PRN 07/08/21 01/04/24 epinephrine 0.3 mg/0.3 mL 0.3 mg (0.3 mL) IM ONCE PRN 08/06/21 01/04/24 injection, auto-injector anaphylaxis #1 ea diclofenac sodium 1 % topical gel 2 g topical QID 06/30/23 01/04/24 insulin glargine 100 unit/mL (3 12 unit subcut HS 06/30/23 01/04/24 mL) subcutaneous pen (Lantus Solostar U-100 Insulin) omeprazole 20 mg capsule,delayed 20 mg PO DAILY 06/30/23 01/04/24 release semaglutide 0.25 mg or 0.5 mg (2 1 mg subcut QWEEK 06/30/23 01/04/24 mg/1.5 mL) subcutaneous pen injector (Ozempic) furosemide 20 mg tablet 20 mg PO DAILY PRN Edema 07/10/23 01/04/24 prednisone 10 mg tablet 10 mg PO DAILY #5 tabs 01/04/24 alprazolam 0.5 mg tablet 0.5 mg PO ONCE PRN claustrophobia 01/06/24 #2 tabs Previous Rx's Medication Instructions Recorded acetaminophen 500 mg capsule 500 mg PO Q6H PRN postoperative 11/23/19 (Tylophen) pain #60 caps epinephrine 0.3 mg/0.3 mL 0.3 mg (0.3 mL) IM ONCE PRN 08/06/21 injection, auto-injector anaphylaxis #1 ea prednisone 10 mg tablet 10 mg PO DAILY #5 tabs 01/04/24 alprazolam 0.5 mg tablet 0.5 mg PO ONCE PRN claustrophobia 01/06/24 #2 tabs Allergies Allergy/AdvReac Type Severity Reaction Status Date / Time bee venom protein (honey bee) Allergy Severe Anaphylaxis Verified 01/04/24 08:58 Penicillins Allergy Severe Anaphylaxsi Unverified 01/04/24 08:58 s erythromycin base AdvReac Intermediate VOMITING Unverified 01/04/24 08:58 tramadol AdvReac Intermediate Nausea Unverified 01/04/24 08:58 codeine AdvReac Unknown Other (See Unverified 01/04/24 08:58 [From Tylenol-Codeine] Comment) General Stated Complaint: Orthopedic MYLES: 4 Review of Systems Constitutional Constitutional: Denies chills and Denies fever(s) Musculoskeletal Musculoskeletal: Reports as per HPI, Reports arthralgias, Reports joint swelling, Reports limited range of motion, Denies numbness, Reports stiffness and Denies tingling Integumentary/Breasts Skin/Breast: Denies rash and Denies skin pain Neurologic Neurologic: Denies numbness and Denies tingling Exam Const General: cooperative, no acute distress and not ill appearing Orientation: alert, awake and oriented x3 HENMT Mouth: moist mucous membranes Resp Effort & Inspection: normal respiratory effort, able to speak in complete sentences and no respiratory distress Cardio Rate: regular rate Rhythm: regular rhythm Pulses: normal peripheral pulses Skin General skin exam: no rashes or lesions noted Neuro General: patient alert, patient awake, patient oriented x3 and moves all extremities Sensory Exam: no sensory deficits noted Extrem Right upper extremity: wrist Details: tenderness Location: of the distal ulna, swelling, abnormal ROM (Pain with any range of motion and only able to slightly perform flexion and extension), normal vascular exam and radial pulse present; no unusual warmth, no abrasions, no lacerations and no ecchymosis and hand Details: normal to inspection and normal capillary refill Course Vital Signs Vital signs: Vital Signs Temperature 36.3 C L 01/04/24 08:56 Pulse 89 01/04/24 08:56 Respiratory Rate 18 01/04/24 08:56 Blood Pressure 119/57 L 01/04/24 08:56 Pulse Oximetry 100 01/04/24 08:56 Temperature 36.3 C L 01/04/24 08:56 Temperature Source Skin 01/04/24 08:56 Pulse 89 01/04/24 08:56 Respiratory Rate 18 01/04/24 08:56 Respiratory Effort Normal, Non-Labored 01/04/24 09:00 Blood Pressure 119/57 L 01/04/24 08:56 Blood Pressure Position Sitting 01/04/24 08:56 Pulse Oximetry 100 01/04/24 08:56 Oxygen Delivery Method Room Air 01/04/24 08:56 Oxygen Flow Rate 0 01/04/24 08:56 Pain Level 10 01/04/24 08:56 Medical Decision Making Patient presenting to the emergency department for chief complaint of right wrist pain. Patient states this has been going on for months and has had multiple visits along with orthopedic visit MRI imaging and follow-ups with recent steroid injection into the joint. Patient reports that that did help with the radial aspects of her pain and discomfort but still having significant ulnar discomfort. Patient denies any change in activity or contributing factor, took 2 Aleve prior to coming, has not contacted the orthopedic office. Physical exam shows diffuse swelling through the wrist, palpable tenderness to the ulnar aspects of the wrist, patient with significant disability with flexion and extension of wrist secondary to pain making exam difficult. Do not see obvious signs of cellulitis, doubt septic arthritis, doubt fracture or dislocation given no injury or trauma, appropriate cap refill pulse and sensation distal to injury. I do not feel there are any emergent conditions acutely. Review of previous records does show that patient has had some improvement with oral steroids's will place patient on a short burst of prednisone given that this is led to some improvement in the past but patient otherwise contact the orthopedic office for arrangement of follow-up appointment. After discussion of diagnosis and plan of care patient has no further needs, questions, or concerns and states clear understanding to return to the emergency department for any worsening symptoms. This documentation was generated using AppSameation system, please disregard any oddities of phrase or misspellings. Quality:SDOH Health Related Social Needs: No Data to Display PFSH All Active Problems (Updated 01/04/24 @ 09:31 by Cameron Toney NP) Arthralgia of right wrist (Acute) Synovitis of wrist (Acute) Acute pain of right wrist (Acute) Diverticula of colon (Acute) Moderate disease confined to the sigmoid colon. 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 Overactive bladder Hoarseness Anger Vaginal dryness Smoker DM CHRONIC BRONCHITIS Surgical History History of colonoscopy (~11/22/21) [place] teeth extracted Hx of cholecystectomy Hx of appendectomy Trigger finger, left middle finger s/p release 11/23/2019 Abdominal hysterectomy Family History Maternal Grandmother Myocardial infarct Social History Smoking/Tobacco Use Status: Former Tobacco Use Smoking risk assessment performed?: Yes Alcohol Intake: current Alcohol Intake frequency: a few times a week Alcohol type: hard liquor Drug use: Never Substance use type: does not use Details: new years geremias Housing: apartment Do you feel safe at home: Yes Do you feel safe in your relationship?: Yes
== END 2024-01-04 09:49 | disposition home or self-care (01) ==
PROVIDERS: Emergency Provider Nurse Practitioner Family; PCP Nurse Practitioner Family
DX: M25.531 Pain in right wrist (principal); E11.9 Type 2 diabetes mellitus without complications; Z79.4 Long term (current) use of insulin; Z87.891 Personal history of nicotine dependence
CPT/HCPCS: 99283

== ENCOUNTER → 2024-01-29 01:18 | Outpatient (CLI) | payer MEDICAID, SELFPAY ==
--- NOTE | 2024-01-29 08:00 | DI.MRI_ITS ---
Exam(s) MR UPPER JOINT RT WO EXAM: MR UPPER JOINT RT WO CLINICAL HISTORY: continued R wrist pain,ARTHRALGIA,SYNOVITIS,M25.531,M65.9. TECHNIQUE: Multiplanar multisequence MRI was performed. COMPARISON: From 16 December 2023. MRI of the wrist 03 August 2023 FINDINGS: BONES: There is no fracture or contusion pattern. Mildly increased patchy marrow signal. No definite bony erosions. JOINTS: Increased joint effusion is seen around the carpal bones. A small amount of fluid is noted a t the distal radial ulnar joint. TENDONS: Flexors: Unremarkable. Extensors: Some intermediate signal in the extensor carpi ulnaris tendon near the ulnar styloid. MUSCLES: Unremarkable. MEDIAN NERVE: Unremarkable on this noncontrast examination. SOFT TISSUES: Unremarkable. LIGAMENTS: Unremarkable. TRIANGULAR FIBROCARTILAGE: Unremarkable. IMPRESSION: Wrist joint effusion with reactive marrow changes. No definite bony erosions. Mild extensor carpi u lnaris tendinosis. DATA REPOSITORY:
== END ==
PROVIDERS: PCP Nurse Practitioner Family; Visit Provider Student in an Organized Health Care Education/Training Program
DX: M25.531 Pain in right wrist (principal)
CPT/HCPCS: 73221

== ENCOUNTER 2024-03-13 03:25 | Emergency (ER) | payer MEDICAID, SELFPAY ==
[2024-03-13 03:41] VITALS: BP 152/75; PULSE 110; RESP 18; TEMP 37; O2SAT 97
--- NOTE | 2024-03-13 04:12 | W.ED.GENAD ---
Discharge Plan Disposition Patient Disposition: Home Condition: Good Discharge Details Clinical Impression: Chronic wrist pain Primary Care Provider: Sary Kim ED Provider: Miriam Hewitt Home Meds and New Rx's Prescriptions: New prednisone 20 mg tablet 20 mg PO BID Qty: 8 0RF No Action lisdexamfetamine [Vyvanse] 40 mg capsule 60 mg PO DAILY hydrocodone-acetaminophen 5-325 mg tablet 1 tab PO QHS PRN insulin glargine [Lantus Solostar U-100 Insulin] 100 unit/mL (3 mL) insulin pen 12 unit subcut HS omeprazole 20 mg capsule,delayed release(DR/EC) 20 mg PO DAILY Ozempic 0.25 mg or 0.5 mg(2 mg/1.5 mL) pen injector 1 mg SUBCUT QWEEK Rx Instructions: TAKES QWEEKLY ON SATURDAYS celecoxib 200 mg capsule 200 mg PO BID PRN (Reason: pain) Qty: 60 0RF metformin [Glucophage] 1,000 MG tablet 1,000 mg PO BID acyclovir 400 mg Tablet 400 mg PO BID pravastatin 10 mg Tablet 10 mg PO HS acetaminophen [Tylophen] 500 mg capsule 500 mg PO Q6H PRN (Reason: postoperative pain) Qty: 60 1RF epinephrine 0.3 mg/0.3 mL auto-injector 0.3 mg IM ONCE PRN (Reason: anaphylaxis) Qty: 1 0RF Rx Instructions: as a single dose furosemide 20 mg tablet 20 mg PO DAILY PRN (Reason: Edema) Patient Comments: 1 tablet by mouth once a day Rx Instructions: PRN FOR BLE SWELLING ketorolac 10 mg tablet 10 mg PO BID Discharge Instructions Instructions: Chronic Pain (ED), Arthralgia (ED) Additional Instructions: Tylenol and celocoxib for pain; follow the directions on the bottle. You can continue taking your hydrocodone-acetaminophen as prescribed; remember this includes tylenol so do not take additional tylenol when you take this. Prednisone twice a day for the next 4 days. Followup with orthopedics; call them to schedule an appointment. Return to the emergency department for new or worsening symptoms. Referrals: [facility] [Provider Group] Sary Kim [Primary Care Provider] - HPI General Mode of arrival: ambulatory. Date/Time Provider Initiated Documentation: 03/13/24 03:52. Limitations to Documentation: no limitations. Information obtained by: patient and old records reviewed. HPI Narrative: 53yo F with chronic bilateral wrist pain, awaiting appointment with [facility] hand surgery scheduled for 04/06/24, presenting with left wrist pain. Has had pain in both wrists in the past and been evaluated in this ED and outpatient by [facility] orthopedics multiple times in the past; more recently her right wrist has been painful however today severe left wrist pain woke her from sleep. Pain is sharp, severe, and worse with movement. No trauma. No numbness or tingling, able to move all digits. No associated symptoms, systemically well with no fevers, chills, rash, nausea, malaise, lethargy, other joint pain, or other concerns. Minimal improvement with steroid injections in the past, reports oral steroids have helped 'for a few days'. Has been taking NSAIDs and hydrocodone at home without improvement in her pain tonight. Related Data Home Medications Medication Instructions Recorded Confirmed metformin 1,000 mg tablet 1,000 mg PO BID 08/01/13 03/13/24 (Glucophage) acyclovir 400 mg tablet 400 mg PO BID 11/21/19 03/13/24 pravastatin 10 mg tablet 10 mg PO HS 11/21/19 03/13/24 acetaminophen 500 mg capsule 500 mg PO Q6H PRN postoperative 11/23/19 03/13/24 (Tylophen) pain #60 caps epinephrine 0.3 mg/0.3 mL 0.3 mg (0.3 mL) IM ONCE PRN 08/06/21 03/13/24 injection, auto-injector anaphylaxis #1 ea insulin glargine 100 unit/mL (3 12 unit subcut HS 06/30/23 03/13/24 mL) subcutaneous pen (Lantus Solostar U-100 Insulin) omeprazole 20 mg capsule,delayed 20 mg PO DAILY 06/30/23 03/13/24 release semaglutide 0.25 mg or 0.5 mg (2 1 mg subcut QWEEK 06/30/23 03/13/24 mg/1.5 mL) subcutaneous pen injector (Ozempic) furosemide 20 mg tablet 20 mg PO DAILY PRN Edema 07/10/23 03/13/24 hydrocodone 5 mg-acetaminophen 325 1 tab PO QHS PRN 02/08/24 03/13/24 mg tablet lisdexamfetamine 40 mg capsule 60 mg PO DAILY 02/08/24 03/13/24 (Vyvanse) celecoxib 200 mg capsule 200 mg PO BID PRN pain #60 caps 02/09/24 03/13/24 ketorolac 10 mg tablet 10 mg PO BID 03/13/24 03/13/24 prednisone 20 mg tablet 20 mg PO BID #8 tabs 03/13/24 Previous Rx's Medication Instructions Recorded acetaminophen 500 mg capsule 500 mg PO Q6H PRN postoperative 11/23/19 (Tylophen) pain #60 caps epinephrine 0.3 mg/0.3 mL 0.3 mg (0.3 mL) IM ONCE PRN 08/06/21 injection, auto-injector anaphylaxis #1 ea celecoxib 200 mg capsule 200 mg PO BID PRN pain #60 caps 02/09/24 prednisone 20 mg tablet 20 mg PO BID #8 tabs 03/13/24 Allergies Allergy/AdvReac Type Severity Reaction Status Date / Time bee venom protein (honey bee) Allergy Severe Anaphylaxis Verified 03/13/24 06:07 Penicillins Allergy Severe Anaphylaxsi Unverified 03/13/24 06:07 s erythromycin base AdvReac Intermediate VOMITING Unverified 03/13/24 06:07 tramadol AdvReac Intermediate Nausea Unverified 03/13/24 06:07 codeine AdvReac Unknown Other (See Unverified 03/13/24 06:07 [From Tylenol-Codeine] Comment) General Stated Complaint: Orthopedic MYLES: 4 Review of Systems Narrative: see HPI Exam Narrative Exam Narrative: General: Alert, well appearing, well nourished Head: Normocephalic, atraumatic Neck: Trachea midline, ?Neck supple. ENT: ?MMM.? Cardiac: ?Regular pulse. No cyanosis. 2+ radial pulses symmetric bilaterally. Resp: No respiratory distress. Speaking in full sentences. Abd: ?Non-distended Extremities: ?Bilateral wrist tenderness and pain with active & passive ROM in all directions. Pain with palpation of carpal bones bilateral, left > right. Mild pain with palpation of metacarpals bilaterally, again left > right. Effusion to left wrist with no warmth or erythema. Sensation to light touch intact in median, radial, & ulnar distributions bilaterally. Strength/motion testing limited 2/t to pain however is able to flex and extend at the wrist and all digits bilaterally. Neurologic: GCS 15. ? Moves all extremities freely against gravity Course Vital Signs Vital signs: Vital Signs Temperature 37.0 C 03/13/24 03:41 Pulse 110 H 03/13/24 03:41 Respiratory Rate 18 03/13/24 03:41 Blood Pressure 152/75 H 03/13/24 03:41 Pulse Oximetry 97 03/13/24 03:41 Temperature 37.0 C 03/13/24 03:41 Temperature Source Oral 03/13/24 03:41 Pulse 110 H 03/13/24 03:41 Respiratory Rate 18 03/13/24 03:41 Respiratory Effort Normal 03/13/24 03:48 Blood Pressure 152/75 H 03/13/24 03:41 Blood Pressure Position Sitting 03/13/24 03:41 Pulse Oximetry 97 03/13/24 03:41 Oxygen Delivery Method Room Air 03/13/24 03:41 Oxygen Flow Rate 0 03/13/24 03:41 Pain Level 10 03/13/24 03:48 Medical Decision Making 53yo F with chronic bilateral wrist pain, awaiting appointment with [facility] hand surgery scheduled for 04/06/24, presenting with atraumatic left wrist pain. Has had pain in both wrists in the past and been evaluated in this ED and outpatient by [facility] orthopedics multiple times in the past; more recently her right wrist has been painful however today severe left wrist pain woke her from sleep. No numbness or tingling, able to move all digits. No associated symptoms, systemically well. Prior workups have included MRI, arthrocentesis, and autoimmune laboratory workup; negative for rheumatoid disease, lyme, inflammatory arthritis, crystal arthropathy, MRIs have shown diffuse synovitis. Most recently seen by Dr. Caruso on 02/08/24; plan at that time for followup with [facility] hand which has been scheduled. Slightly hypertensive (SBP 150) and tachycardiac (110) on arrival in triage; vital signs otherwise reassuring. Exam with marked tenderness to bilateral wrists and pain with active and passive ROM, left > right. Effusion on left with no overlying warmth or erythema. Given chronic nature of symptoms and extensive prior workup, low suspicion for septic arthritis or other acute process. Would not emergently consult orthopedics/tap joint at this time. Appropriate outpatient followup is already arranged. Out of an abundance of caution will get plain film and send screening labs. Treating pain with tylenol, toradol, oral prednisone, single dose of hydromorphone in the ED. Plan film independently reviewed; no displaced fracture on my view, agree with radiology read below. Labs reviewed as below, CBC with mild leukkocytosis to 14 non-specific, ESR normal, CRP marginal at 1.1. Labs and exam not consistent with septic arthritis. On reassessment patient reports pain has improved. Will discharge home on short course of prednisone to followup [facility] orthopedics, awaiting [facility] hand. Discharged home; discharge instructions and return precautions were reviewed with patient who verbalized understanding. All questions were answered and she is in full agreement with the plan. Medical Records Medical records reviewed: Yes I reviewed the patient's medical records. Medical records narrative: ortho note 02/08/24, MRI reports 01/29/24, 08/03/23, 08/29/16, Imaging Data Radiologic Study: Imaging: X-Ray Radiologist's impression: IMPRESSION: No acute findings. Lab Data Lab results reviewed: Yes I reviewed the patient's lab results. Labs: Laboratory Tests Range/Units 03/13/24 04:15 WBC (4.4-10.8) 10^3/uL 14.08 H RBC (3.93-5.22) 10^6/uL 4.15 Hgb (11.2-15.7) g/dL 13.4 Hct (36.0-46.0) % 39.8 MCV (80-95) fL 96 H MCH (27.0-33.0) pg 32.3 MCHC (32.0-36.0) % 33.7 RDW (11.7-14.6) % 12.2 Plt Count (130-400) 10^3/uL 360 MPV (8.0-11.0) fL 8.8 Immature Gran % 0.4 Neutrophils % 80.3 Lymphocytes % 10.2 Monocytes % 8.4 Eosinophils % 0.5 Basophils % 0.2 Nucleated RBC % (0.0-0.3) % 0.0 Absolute Neutrophils (1.2-6.7) 10^3/uL 11.31 H Absolute Lymphocytes (1.2-3.4) 10^3/uL 1.44 Absolute Monocytes (0.1-0.8) 10^3/uL 1.18 H Absolute Eosinophils (0.0-0.7) 10^3/uL 0.07 Absolute Basophils (0.0-0.2) 10^3/uL 0.03 ESR (0-30) mm/hr 28 C-Reactive Protein (<or=0.5) mg/dL 1.10 H Quality:SDOH Health Related Social Needs: No Data to Display PFSH All Active Problems (Updated 03/13/24 @ 05:25 by Miriam Hewitt MD) Chronic wrist pain (Acute) Synovitis of wrist (Acute) Acute pain of right wrist (Acute) Diverticula of colon (Acute) Moderate disease confined to the sigmoid colon. 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 Overactive bladder Hoarseness Anger Vaginal dryness Smoker DM CHRONIC BRONCHITIS Surgical History History of colonoscopy (~11/22/21) [place] teeth extracted Hx of cholecystectomy Hx of appendectomy Trigger finger, left middle finger s/p release 11/23/2019 Abdominal hysterectomy Family History Maternal Grandmother Myocardial infarct Social History Smoking/Tobacco Use Status: Former Tobacco Use Quit Date: 11/20/23 Smoking risk assessment performed?: Yes Alcohol Intake: current Alcohol Intake frequency: a few times a week Alcohol type: hard liquor Drug use: Never Substance use type: does not use Details: [employer] Housing: apartment Do you feel safe at home: Yes Do you feel safe in your relationship?: Yes
[2024-03-13] MEDS: predniSONE 20 MG TAB 80 MG PO (04:25)
[2024-03-13] MEDS: HYDROmorphone 2 MG TAB PO (04:25)
[2024-03-13] MEDS: Ketorolac 15 MG/ML VIAL IVP (04:25)
[2024-03-13 04:37] LABS: Abs Immature Grans 0.05 10^3/uL (0.0-0.06); Absolute Basophil Count 0.03 10^3/uL (0.0-0.2); Absolute Eosinophil Count 0.07 10^3/uL (0.0-0.7); Absolute Monocyte Count 1.18 10^3/uL (0.1-0.8); Basophils % 0.2; Eosinophils % 0.5; HCT 39.8 % (36.0-46.0); HGB 13.4 g/dL (11.2-15.7); Immature Grans % 0.4; Lymphocytes % 10.2; MCH 32.3 pg (27.0-33.0); MCHC 33.7 % (32.0-36.0); MCV 96 fL (80-95); MPV 8.8 fL (8.0-11.0); Monocytes % 8.4; Neutrophils % 80.3; Platelet Count 360 10^3/uL (130-400); RBC 4.15 10^6/uL (3.93-5.22); RDW 12.2 % (11.7-14.6); RDW-SD 43.8 fL; WBC 14.08 10^3/uL (4.4-10.8)
[2024-03-13 04:39] LABS: ESR 28 mm/hr (0-30)
--- NOTE | 2024-03-13 04:39 | DI.RAD_ITS ---
Exam(s) XR WRIST LT COMPLETE EXAM: XR WRIST LT COMPLETE CLINICAL HISTORY: left wrist pain and swelling, atraumatic. TECHNIQUE: 2D digital imaging was performed. COMPARISON: No exams were available for comparison FINDINGS: 3 views No evidence of fracture or dislocation nor significant ulnar variance. Scaphoid and scapholunate dis tance normal. No osseous lesions nor erosions. There appears to be developmental fusion of the capitate and hamate bones. IMPRESSION: There appears to be developmental fusion of the capitate and hamate bones. No obvious acute fracture s. DATA REPOSITORY: RADIATION DOSE DELIVERED:
[2024-03-13 04:41] LABS: Absolute Lymphocyte Count 1.44 10^3/uL (1.2-3.4); Absolute Neutrophil Count 11.31 10^3/uL (1.2-6.7)
--- NOTE | 2024-03-13 04:56 | DI.VRAD_ITS ---
PROCEDURE INFORMATION: Exam: XR Left Wrist Exam date and time: 03/13/2024 4:33 AM Age: 53 years old Clinical indication: Patient HX: Left wrist pain and swelling, atraumatic; Additional info: Patient unable to hold position, best images possible TECHNIQUE: Imaging protocol: Radiologic exam of the left wrist. Views: 3 or more views. COMPARISON: CR XR THUMB LT 11/09/2021 3:16 PM FINDINGS: Bones/joints: Normal. Soft tissues: Normal. IMPRESSION: No acute findings. Dictated and Authenticated by: Sina Fiore MD. Ordering:JUVE Pineda MD
[2024-03-13 06:16] VITALS: BP 157/72; PULSE 102; RESP 16; TEMP 36.8; O2SAT 96
[2024-03-13] MEDS: Acetaminophen 500 MG TAB PO (06:21)
== END 2024-03-13 06:21 | disposition home or self-care (01) ==
PROVIDERS: Emergency Provider Student in an Organized Health Care Education/Training Program; PCP Nurse Practitioner Family
DX: M25.532 Pain in left wrist (principal); M25.531 Pain in right wrist; G89.29 Other chronic pain; E11.9 Type 2 diabetes mellitus without complications; Z79.4 Long term (current) use of insulin; Z79.84 Long term (current) use of oral hypoglycemic drugs; Z79.85 Long-term (current) use of injectable non-insulin antidiabetic drugs; Z87.891 Personal history of nicotine dependence
CPT/HCPCS: 85652; 96374; 99284; 73110; 85025; 86140; J1885; J7512

== ENCOUNTER 2024-06-06 02:21 | Outpatient (CLI) | payer MEDICAID, SELFPAY ==
[2024-06-06 12:23] LABS: Abs Immature Grans 0.05 10^3/uL (0.0-0.06); Absolute Basophil Count 0.02 10^3/uL (0.0-0.2); Absolute Eosinophil Count 0.04 10^3/uL (0.0-0.7); Absolute Lymphocyte Count 1.85 10^3/uL (1.2-3.4); Absolute Monocyte Count 0.59 10^3/uL (0.1-0.8); Absolute Neutrophil Count 7.32 10^3/uL (1.2-6.7); Basophils % 0.2 %; Eosinophils % 0.4 %; HCT 39.8 % (36.0-46.0); HGB 12.9 g/dL (11.2-15.7); Immature Grans % 0.5 %; Lymphocytes % 18.7 %; MCH 31.4 pg (27.0-33.0); MCHC 32.4 % (32.0-36.0); MCV 97 fL (80-95); Neutrophils % 74.2 %; Platelet Count 423 10^3/uL (130-400); RBC 4.11 10^6/uL (3.93-5.22); RDW-SD 42.9 fL; WBC 9.87 10^3/uL (4.4-10.8)
[2024-06-06 12:56] LABS: Hemoglobin A1C > 13.0 % (<5.7)
[2024-06-06 13:20] LABS: ALT 39 U/L (14-59); AST 31 U/L (15-37); Albumin 3.4 g/dL (3.4-5.0); Alkaline Phosphatase 107 U/L (46-116); Anion Gap 13.6 mmol/L (3-11); BUN 11 mg/dL (7-18); CO2 26.4 mmol/L (21.0-32.0); CREATININE 0.8 mg/dL (0.55-1.02); Calcium 9.5 mg/dL (8.5-10.1); Calculated LDL 55 mg/dL (<100); Chloride 96 mmol/L (98-107); Cholesterol 143 mg/dL (<200); Estimated GFR 86.42 (mL/min/1.73m2); Glucose 436 mg/dL (74-106); HDL Cholesterol 69 mg/dL (40-60); Potassium 4.5 mmol/L (3.5-5.1); Sodium 136 mmol/L (136-145); Total Protein 8.1 g/dL (6.4-8.2); Triglyceride 96 mg/dL (<150)
[2024-06-07 10:00] LABS: Hepatitis A Antibody IgM Negative (Negative); Hepatitis B Core Antibody Negative (Negative); Hepatitis B surface Ag Negative (Negative); Hepatitis C Ab w Rflx HCV PCR Reactive (Negative)
[2024-06-08 13:24] LABS: HCV RNA Detection Quantitative 15200000 IU/mL (Undetected); HCV RNA Qualitative Detected (Undetected)
== END 2024-06-06 02:22 | disposition home or self-care (01) ==
LOC: LBO 02:22
PROVIDERS: PCP Nurse Practitioner Family; Visit Provider Nurse Practitioner Family
DX: M06.9 Rheumatoid arthritis, unspecified (principal); I10 Essential (primary) hypertension; E78.5 Hyperlipidemia, unspecified; D51.3 Other dietary vitamin B12 deficiency anemia; E55.9 Vitamin D deficiency, unspecified
CPT/HCPCS: 36415; 80053; 80061; 86704; 86709; 86803; 87340; 87522; 83036; 84443; 85025

== ENCOUNTER 2024-07-04 19:59 | Outpatient (REF) | payer SELFPAY ==
[2024-07-04 17:20] LABS: ALT 36 U/L (14-59); AST 25 U/L (15-37); Albumin 3.3 g/dL (3.4-5.0); Alkaline Phosphatase 87 U/L (46-116); Anion Gap 9.7 mmol/L (3-11); BUN 9 mg/dL (7-18); Bilirubin, Total 0.25 mg/dL (0.2-1.0); CO2 27.3 mmol/L (21.0-32.0); CREATININE 0.7 mg/dL (0.55-1.02); Chloride 98 mmol/L (98-107); Estimated GFR 101.44 (mL/min/1.73m2); Ferritin 17 ng/mL (8-252); Glucose 395 mg/dL (74-106); Potassium 4.4 mmol/L (3.5-5.1); Sodium 135 mmol/L (136-145); Total Protein 6.8 g/dL (6.4-8.2)
== END 2024-07-04 20:00 | disposition home or self-care (01) ==
LOC: LBN 19:59
PROVIDERS: PCP Nurse Practitioner Family; Referring Provider Nurse Practitioner Family; Visit Provider Nurse Practitioner Family
DX: R94.31 Abnormal electrocardiogram [ECG] [EKG] (principal)
CPT/HCPCS: 80053; 82728

== ENCOUNTER 2024-07-07 20:22 | Emergency (ER) | payer BC, SELFPAY ==
[2024-07-07 20:25] VITALS: BP 136/77; PULSE 120; RESP 16; TEMP 36; O2SAT 96
[2024-07-07 20:41] VITALS: RESP 18
--- NOTE | 2024-07-07 21:22 | ED.GENADUL_ITS ---
Discharge Plan Disposition Patient Disposition: Home Condition: Good Discharge Details Clinical Impression: Edema, peripheral Primary Care Provider: Sary Kim ED Provider: Donte Vasquez Home Meds and New Rx's Prescriptions: No Action fluticasone furoate 50 mcg/actuation blister with device 1 inh inhalation PRN duloxetine [Cymbalta] 30 mg capsule,delayed release(DR/EC) 30 mg PO DAILY ibuprofen 200 mg tablet 200 mg PO Q6H PRN clonidine HCl 0.1 mg tablet 0.1 mg PO 3XD PRN insulin glargine [Basaglar KwikPen U-100 Insulin] subcut alprazolam 0.25 mg tablet 0.25 mg PO DAILY hydrocodone-acetaminophen 5-325 mg tablet 1 tab PO QHS PRN insulin glargine [Lantus Solostar U-100 Insulin] 100 unit/mL (3 mL) insulin pen 12 unit subcut HS omeprazole 20 mg capsule,delayed release(DR/EC) 20 mg PO DAILY celecoxib 200 mg capsule 200 mg PO BID PRN (Reason: pain) Qty: 60 0RF metformin [Glucophage] 1,000 MG tablet 1,000 mg PO BID acyclovir 400 mg Tablet 400 mg PO BID pravastatin 10 mg Tablet 10 mg PO HS acetaminophen [Tylophen] 500 mg capsule 500 mg PO Q6H PRN (Reason: postoperative pain) Qty: 60 1RF epinephrine 0.3 mg/0.3 mL auto-injector 0.3 mg IM ONCE PRN (Reason: anaphylaxis) Qty: 1 0RF Rx Instructions: as a single dose furosemide 20 mg tablet 40 mg PO DAILY PRN (Reason: Edema) Patient Comments: 1 tablet by mouth once a day Rx Instructions: PRN FOR BLE SWELLING ketorolac 10 mg tablet 10 mg PO BID lamotrigine 25 mg tablet 75 mg PO DAILY Discharge Instructions Instructions: Swelling Additional Instructions: At this time your symptoms do not show evidence of bacterial infection/cellulitis, blood clot, or problems with your heart. You do have edema of your lower extremities though. Please wear the compression stockings as often as possible. Please avoid any salty foods. Please take 40 mg of Lasix daily for the next week. When you go on your flight in the upcoming future, please make sure you are wearing your compression stockings. If you develop worsening redness, fever or chills or worsening swelling please return for reassessment as this may indicate evidence of infection or other concerning etiology. I have extensively reviewed the treatment plan and discharge instructions with the patient. I have addressed all patient concerns at this time. The patient was made aware of what symptoms to monitor for that would warrant a return to the emergency department. Discussed the plan with the patient, they demonstrate verbal understanding and agreement with our assessment and plan at this time. The documentation in this chart was dictated using [employer] dictation software. Please excuse any dictation errors. Referrals: Sary Kim [Primary Care Provider] - [facility] General Date/Time Provider Initiated Documentation: 07/07/24 20:50 . Related Data Home Medications ?Medication ?Instructions ?Recorded ?Confirmed metformin 1,000 mg tablet 1,000 mg PO BID 08/01/13 07/07/24 (Glucophage) acyclovir 400 mg tablet 400 mg PO BID 11/21/19 07/07/24 pravastatin 10 mg tablet 10 mg PO HS 11/21/19 07/07/24 acetaminophen 500 mg capsule 500 mg PO Q6H PRN postoperative 11/23/19 07/07/24 (Tylophen) pain #60 caps epinephrine 0.3 mg/0.3 mL 0.3 mg (0.3 mL) IM ONCE PRN 08/06/21 07/07/24 injection, auto-injector anaphylaxis #1 ea insulin glargine 100 unit/mL (3 12 unit subcut HS 06/30/23 07/07/24 mL) subcutaneous pen (Lantus Solostar U-100 Insulin) omeprazole 20 mg capsule,delayed 20 mg PO DAILY 06/30/23 07/07/24 release furosemide 20 mg tablet 40 mg PO DAILY PRN Edema 07/10/23 07/07/24 hydrocodone 5 mg-acetaminophen 325 1 tab PO QHS PRN 02/08/24 03/13/24 mg tablet celecoxib 200 mg capsule 200 mg PO BID PRN pain #60 caps 02/09/24 07/07/24 ketorolac 10 mg tablet 10 mg PO BID 03/13/24 07/07/24 alprazolam 0.25 mg tablet 0.25 mg PO DAILY 07/05/24 07/07/24 clonidine HCl 0.1 mg tablet 0.1 mg PO 3XD PRN 07/05/24 07/07/24 duloxetine 30 mg capsule,delayed 30 mg PO DAILY 07/05/24 07/07/24 release (Cymbalta) fluticasone furoate 50 1 inh inhalation PRN 07/05/24 mcg/actuation blister powder for inhalation ibuprofen 200 mg tablet 200 mg PO Q6H PRN 07/05/24 07/07/24 insulin glargine [Basaglar KwikPen subcut 07/05/24 U-100 Insulin] lamotrigine 25 mg tablet 75 mg PO DAILY 07/07/24 07/07/24 Previous Rx's ?Medication ?Instructions ?Recorded acetaminophen 500 mg capsule 500 mg PO Q6H PRN postoperative 11/23/19 (Tylophen) pain #60 caps epinephrine 0.3 mg/0.3 mL 0.3 mg (0.3 mL) IM ONCE PRN 08/06/21 injection, auto-injector anaphylaxis #1 ea celecoxib 200 mg capsule 200 mg PO BID PRN pain #60 caps 02/09/24 Allergies Allergy/AdvReac Type Severity Reaction Status Date / Time bee venom protein (honey bee) Allergy Severe Anaphylaxis Verified 07/07/24 20:30 Penicillins Allergy Severe Anaphylaxsi Verified 07/07/24 20:30 s erythromycin base AdvReac Intermediate VOMITING Verified 07/07/24 20:30 tramadol AdvReac Intermediate Nausea Verified 07/07/24 20:30 codeine (From AdvReac Unknown Other (See Verified 07/07/24 20:30 Tylenol-Codeine) Comment) General Stated Complaint: GenMedical MYLES: 3 Review of Systems All systems reviewed & are unremarkable except as noted in HPI and below Exam Narrative Exam Narrative: 1.Const: Well-nourished, Well-developed, appearing stated age 2.Eyes: PERRL, no conjunctival injection, and symmetrical lids. 3.ENT: Atraumatic external nose and ears. Moist MM. Neck: Symmetric, trachea midline, No thyromegaly. 4.CVS: +S1/S2, No murmurs or gallops. Peripheral pulses 2+ and equal in all extremities. Brisk capillary refill in all extremities. 5.RESP: Unlabored respiratory effort. Clear to auscultation bilaterally. No wheezes rales or rhonchi 6.GI: Soft, Nontender/Nondistended, No hepatosplenomegaly. No guarding or rebound. 7.MSK: Normocephalic/Atraumatic, Extremities w/o deformity or ttp No cyanosis or clubbing, Normal movement of all extremities. +2 pitting edema in bilateral lower extremities, no calf tenderness. No significant erythema to suggest cellulitis. 8.Skin: Warm, Dry. No rashes or lesions. No erythema. 9.Neuro: hearing aid technician II-XII grossly intact. Sensation grossly intact, no focal neurologic deficits. 10.Psych: (AAO) x3. Appropriate mood and affect Course Vital Signs Vital signs: Vital Signs Temperature 36 C L 07/07/24 20:25 Pulse 120 H 07/07/24 20:25 Respiratory Rate 16 07/07/24 20:25 Blood Pressure 136/77 07/07/24 20:25 Pulse Oximetry 96 07/07/24 20:25 Temperature 36 C L 07/07/24 20:25 Pulse 120 H 07/07/24 20:25 Respiratory Rate 18 07/07/24 20:41 Respiratory Effort Normal, Non-Labored 07/07/24 20:41 Respiratory Depth Normal 07/07/24 20:41 Respiratory Pattern Normal 07/07/24 20:41 Blood Pressure 136/77 07/07/24 20:25 Blood Pressure Position Sitting 07/07/24 20:25 Pulse Oximetry 96 07/07/24 20:25 Oxygen Delivery Method Room Air 07/07/24 20:25 Oxygen Flow Rate 0 07/07/24 20:25 Pain Level 0 07/07/24 20:25 Medical Decision Making 54-year-old female with a past medical history of peripheral edema without diagnosis of congestive heart failure presents today for evaluation of edema of the lower extremities. Patient states that she regularly takes 20 mg of Lasix every day, however over the last 2 days she has eaten a significant amount of salty foods. She went to the [facility] hospital [employer] and had hotdogs, macaroni and cheese, [place] fries and multiple other salty things. She then again ate additional salty foods today. This morning she noticed that her legs were bigger than normal and had notable edema. She denies any chest pain or shortness of breath. No positional nocturnal dyspnea. No calf pain or tenderness. No fever or chills. Denies PE risk factors such as recent long car rides, immobilization, recent surgery, prior history of DVT or PE, family history of PE or DVT, morbid obesity, exogenous estrogen and smoking, hemoptysis, history of cancer. Exam demonstrates well-appearing female, +1 to +2 pitting edema the lower extremities bilaterally, no calf tenderness. No redness or warmth that would suggest cellulitis. No fever or chills. No other concerning red flags. Limited bedside ultrasound shows no evidence of pulmonary edema, cardiac bedside limited echo shows no evidence of congestive heart failure, or ventricular abnormality. No hypoxemia. No chest pain or shortness of breath to suggest PE. Symptoms appear consistent with mild peripheral edema secondary to increased salt use. The patient's family doctor has already recommended increasing her dose to 40 mg/day which I would agree with. She states that even during her 1 hour here it is starting to go down and look better. We will give her compression stockings for home use. No evidence of cellulitis to suggest need for antibiotics at this point, however I did have a long discussion with her regarding what symptoms would look like that could present like cellulitis that would require antibacterial treatment. Additionally there is no clinical evidence to suggest DVT at this time or need for emergent ultrasound of the lower extremities. Will recommend continuation of 40 mg daily for the Lasix, avoidance of salty foods which I feel is likely the causative agent of her edema. Compression stockings will be given here for home use, and we recommend that she uses these moving forward. She does have a trip coming up where she will be going to [place]. Recommend regular use of compression stockings there for the flight and avoidance of salty foods. Discussed red flags for which to return. I have extensively reviewed the treatment plan and discharge instructions with the patient. I have addressed all patient concerns at this time. The patient was made aware of what symptoms to monitor for that would warrant a return to the emergency department. Discussed the plan with the patient, they demonstrate verbal understanding and agreement with our assessment and plan at this time. The documentation in this chart was dictated using [employer] dictation software. Please excuse any dictation errors. Quality:SDOH Health Related Social Needs: No Data to Display PFSH All Active Problems Edema, peripheral (Acute) Synovitis of wrist (Acute) Acute pain of right wrist (Acute) Diverticula of colon (Acute) Moderate disease confined to the sigmoid colon. Adenomatous colon polyp (Acute) Abrasion of cornea, right (Acute) Bee sting reaction (Acute) Medical History Synovitis and tenosynovitis Pain in left wrist Thyrotoxicosis, unspecified without thyrotoxic crisis or storm Herpesviral infection, unspecified Pain in left shoulder Generalized anxiety disorder Type 2 diabetes mellitus Nicotine dependence with nicotine-induced disorder Pain in right hip Pain in right arm PTSD (post-traumatic stress disorder) Abrasion of left hand, initial encounter Hordeolum externum left lower eyelid ADHD (attention deficit hyperactivity disorder) Urinary frequency Subclinical hypothyroidism Tobacco dependency Chronic bronchitis Chronic anxiety Insomnia IBS (irritable bowel syndrome) D predominant Intertrigo Tendonitis Insulin dependent diabetes mellitus Necrobiosis lipoidica diabeticorum Overactive bladder Hoarseness Anger Vaginal dryness Smoker DM CHRONIC BRONCHITIS Surgical History History of colonoscopy (~11/22/21) [place] teeth extracted Hx of cholecystectomy Hx of appendectomy Trigger finger, left middle finger s/p release 11/23/2019 Abdominal hysterectomy Family History Maternal Grandmother Myocardial infarct Daughter ADHD Bipolar disorder Son ADHD Bipolar disorder Mother Alcoholism ADHD Depression MINDY (generalized anxiety disorder) Father Alcoholism Social History Smoking/Tobacco Use Status: Former Tobacco Use Quit Date: 11/20/23 Smoking risk assessment performed?: Yes Alcohol Intake: current Alcohol Intake frequency: a few times a week Alcohol type: hard liquor Drug use: Never Substance use type: does not use Details: [employer] Housing: apartment Do you feel safe at home: Yes Do you feel safe in your relationship?: Yes POCUS Exam (ED) Limited Cardiac Exam DATE OF EXAM: 07/07/24 TIME OF EXAM: 22:01 PROVIDER THAT PERFORMED THE STUDY: Donte Vasquez IS THIS A REPEAT EXAM DURING THIS ENCOUNTER: no REASON FOR EXAM: Congestive heart failure VISUALIZED STRUCTURES: Left atrium, Left ventricle, Right ventricle, Mitral valve and Interventricular septum VIEW OBTAINED: Parasternal long-axis PERTINENT FINDINGS/IMPRESSION: No apparent abnormalities Exam complete Limited Thoracic Lung Exam DATE OF EXAM: 07/07/24 TIME OF EXAM: 22:02 PROVIDER THAT PERFORMED THE STUDY: Donte Vasquez IS THIS A REPEAT EXAM DURING THIS ENCOUNTER: No REASON FOR EXAM: Other (evaluate for pulmonary edema) indication: evaluate for pulmonary edema VISUALIZED STRUCTURES: right lateral, left lateral, right posterior and left posterior PERTINENT FINDINGS/
[2024-07-07 21:31] VITALS: BP 142/71; PULSE 99; RESP 16; O2SAT 97
== END 2024-07-07 21:31 | disposition home or self-care (01) ==
PROVIDERS: Emergency Provider Student in an Organized Health Care Education/Training Program; PCP Nurse Practitioner Family
DX: R22.43 Localized swelling, mass and lump, lower limb, bilateral (principal); M06.9 Rheumatoid arthritis, unspecified; E11.9 Type 2 diabetes mellitus without complications; Z79.4 Long term (current) use of insulin
CPT/HCPCS: 76604; 93308; 99284; 99283

== ENCOUNTER 2024-09-20 02:34 | Outpatient (CLI) | payer BC, SELFPAY ==
[2024-09-20 15:02] LABS: Abs Immature Grans 0.03 10^3/uL (0.0-0.06); Absolute Basophil Count 0.01 10^3/uL (0.0-0.2); Absolute Eosinophil Count 0.14 10^3/uL (0.0-0.7); Absolute Lymphocyte Count 2.24 10^3/uL (1.2-3.4); Absolute Monocyte Count 0.39 10^3/uL (0.1-0.8); Absolute Neutrophil Count 5.37 10^3/uL (1.2-6.7); Basophils % 0.1 %; ESR 40 mm/hr (0-30); Eosinophils % 1.7 %; HCT 35.1 % (36.0-46.0); HGB 11.2 g/dL (11.2-15.7); Immature Grans % 0.4 %; Lymphocytes % 27.4 %; MCH 29.5 pg (27.0-33.0); MCHC 31.9 % (32.0-36.0); MCV 92 fL (80-95); MPV 8.7 fL (8.0-11.0); Monocytes % 4.8 %; Neutrophils % 65.6 %; Platelet Count 374 10^3/uL (130-400); RDW 13.3 % (11.7-14.6); RDW-SD 44.7 fL; WBC 8.18 10^3/uL (4.4-10.8)
[2024-09-20 16:25] LABS: ALT 59 U/L (14-59); AST 34 U/L (15-37); Albumin 3.1 g/dL (3.4-5.0); Alkaline Phosphatase 99 U/L (46-116); Anion Gap 8.1 mmol/L (3-11); BUN 13 mg/dL (7-18); C-Reactive Protein 0.76 mg/dL (<or=0.5); CO2 27.9 mmol/L (21.0-32.0); CREATININE 0.7 mg/dL (0.55-1.02); Chloride 101 mmol/L (98-107); Estimated GFR 101.44 (mL/min/1.73m2); Glucose 307 mg/dL (74-106); Potassium 3.8 mmol/L (3.5-5.1); Sodium 137 mmol/L (136-145); Total Protein 7.4 g/dL (6.4-8.2)
[2024-09-21 11:29] LABS: Hepatitis C Ab w Rflx HCV PCR Reactive (Negative)
[2024-09-22 11:52] LABS: HCV RNA Detection Quantitative 21600000 IU/mL (Undetected); HCV RNA Qualitative Detected (Undetected)
[2024-09-22 19:36] LABS: HCV Genotype 2 (Undetected)
== END 2024-09-20 02:35 | disposition home or self-care (01) ==
LOC: LBO 02:34
PROVIDERS: PCP Nurse Practitioner Family; Visit Provider Student in an Organized Health Care Education/Training Program
DX: M05.741 Rheumatoid arthritis with rheumatoid factor of right hand without organ or systems involvement (principal); M05.742 Rheumatoid arthritis with rheumatoid factor of left hand without organ or systems involvement; E55.9 Vitamin D deficiency, unspecified; D51.3 Other dietary vitamin B12 deficiency anemia; E78.5 Hyperlipidemia, unspecified; I10 Essential (primary) hypertension
CPT/HCPCS: 36415; 80053; 85652; 86803; 87522; 84443; 85025; 86140; 87521

== ENCOUNTER 2024-12-28 04:14 | Outpatient (CLI) | payer BC, SELFPAY ==
[2024-12-28 15:04] LABS: Abs Immature Grans 0.07 10^3/uL (0.0-0.06); Absolute Eosinophil Count 0.08 10^3/uL (0.0-0.7); Absolute Lymphocyte Count 2.31 10^3/uL (1.2-3.4); Basophils % 0.3 %; Eosinophils % 0.5 %; HCT 35.3 % (36.0-46.0); HGB 11.4 g/dL (11.2-15.7); Immature Grans % 0.5 %; MCH 28.8 pg (27.0-33.0); MCHC 32.3 % (32.0-36.0); MCV 89 fL (80-95); MPV 9.4 fL (8.0-11.0); Monocytes % 3.9 %; Neutrophils % 79.8 %; Platelet Count 634 10^3/uL (130-400); RBC 3.96 10^6/uL (3.93-5.22); RDW 15.7 % (11.7-14.6); RDW-SD 49.6 fL; WBC 15.38 10^3/uL (4.4-10.8)
[2024-12-28 15:07] LABS: Absolute Basophil Count 0.05 10^3/uL (0.0-0.2); Absolute Neutrophil Count 12.27 10^3/uL (1.2-6.7)
[2024-12-28 15:10] LABS: ESR 49 mm/hr (0-30)
[2024-12-28 15:29] LABS: Hemoglobin A1C > 13.0 % (<5.7)
[2024-12-28 15:52] LABS: ALT 18 U/L (14-59); AST 7 U/L (15-37); Albumin 3.5 g/dL (3.4-5.0); Alkaline Phosphatase 123 U/L (46-116); Anion Gap 8.2 mmol/L (3-11); BUN 17 mg/dL (7-18); Bilirubin, Total 0.36 mg/dL (0.2-1.0); C-Reactive Protein 1.51 mg/dL (<or=0.5); CO2 29.8 mmol/L (21.0-32.0); CREATININE 0.9 mg/dL (0.55-1.02); Calcium 9.2 mg/dL (8.5-10.1); Chloride 94 mmol/L (98-107); Estimated GFR 75.03 (mL/min/1.73m2); Potassium 4.5 mmol/L (3.5-5.1); Sodium 132 mmol/L (136-145); Total Protein 7.8 g/dL (6.4-8.2)
[2024-12-28 16:38] LABS: Glucose 591 mg/dL (74-106)
[2024-12-28 21:41] LABS: Rheumatoid Factor 13.8 IU/mL (<12.0)
[2024-12-29 11:33] LABS: HCV RNA Detection Quantitative 2720 IU/mL (Undetected); HCV RNA Qualitative Detected (Undetected)
== END 2024-12-28 04:15 | disposition home or self-care (01) ==
LOC: LBO 04:14
PROVIDERS: Internal Medicine Gastroenterology; Student in an Organized Health Care Education/Training Program; PCP Nurse Practitioner Family; Visit Provider Nurse Practitioner Family
DX: M06.041 Rheumatoid arthritis without rheumatoid factor, right hand (principal); M06.042 Rheumatoid arthritis without rheumatoid factor, left hand; E11.9 Type 2 diabetes mellitus without complications; Z79.4 Long term (current) use of insulin; B18.2 Chronic viral hepatitis C
CPT/HCPCS: 36415; 80053; 85652; 87522; 83036; 85025; 86140; 86431

== ENCOUNTER 2025-08-15 03:11 | Outpatient (CLI) | payer BC, SELFPAY ==
[2025-08-15 14:42] LABS: Abs Immature Grans 0.03 10^3/uL (0.0-0.06); ESR 27 mm/hr (0-30); HCT 36.4 % (36.0-46.0); HGB 11.7 g/dL (11.2-15.7); Immature Grans % 0.3 %; MCH 30.5 pg (27.0-33.0); MCHC 32.1 % (32.0-36.0); MCV 95 fL (80-95); MPV 9.1 fL (8.0-11.0); Platelet Count 495 10^3/uL (130-400); RBC 3.83 10^6/uL (3.93-5.22); RDW 16.0 % (11.7-14.6); RDW-SD 55.5 fL; WBC 11.90 10^3/uL (4.4-10.8)
[2025-08-15 15:21] LABS: C-Reactive Protein < 0.50 mg/dL (<or=0.5)
[2025-08-15 15:27] LABS: ALT 21 U/L (14-59); AST 17 U/L (15-37); Albumin 4.0 g/dL (3.4-5.0); Alkaline Phosphatase 86 U/L (46-116); Anion Gap 12.8 mmol/L (3-11); BUN 10 mg/dL (7-18); Bilirubin, Total 0.3 mg/dL (0.2-1.0); CO2 27.2 mmol/L (21.0-32.0); Calcium 9.4 mg/dL (8.5-10.1); Chloride 98 mmol/L (98-107); Estimated GFR 85.89 (mL/min/1.73m2); Glucose 130 mg/dL (74-106); Potassium 4.2 mmol/L (3.5-5.1); Sodium 138 mmol/L (136-145); Total Protein 8.0 g/dL (6.4-8.2)
[2025-08-16 11:00] LABS: Hepatitis C Ab w Rflx HCV PCR Reactive (Negative)
== END 2025-08-15 03:12 | disposition home or self-care (01) ==
LOC: LBO 03:12
PROVIDERS: Student in an Organized Health Care Education/Training Program; PCP Nurse Practitioner Family; Visit Provider Nurse Practitioner Family
DX: B18.2 Chronic viral hepatitis C (principal); M05.9 Rheumatoid arthritis with rheumatoid factor, unspecified
CPT/HCPCS: 36415; 80053; 85652; 86803; 87522; 85025; 86140

== ENCOUNTER 2025-11-02 08:21 | Outpatient (CLI) | payer BC, SELFPAY ==
[2025-11-02 16:14] LABS: ESR 20 mm/hr (0-30)
[2025-11-02 16:15] LABS: C-Reactive Protein < 0.50 mg/dL (<=0.50)
[2025-11-02 16:16] LABS: ALT 22 U/L (10-49); AST 22 U/L (<34); Albumin 4.5 g/dL (3.2-5.0); Alkaline Phosphatase 72 U/L (46-116); Anion Gap 10.9 mmol/L (3-11); BUN 16 mg/dL (9-23); Bilirubin, Total 0.2 mg/dL (0.2-1.2); CO2 27.1 mmol/L (20.0-31.0); Calcium 9.4 mg/dL (8.3-10.6); Chloride 103 mmol/L (98-107); Glucose 161 mg/dL (74-106); Potassium 4.4 mmol/L (3.5-5.1); Sodium 141 mmol/L (136-145); Total Protein 7.2 g/dL (5.7-8.2)
[2025-11-02 16:33] LABS: HCT 37.2 % (36.0-46.0); HGB 11.6 g/dL (11.2-15.7); MCH 29.5 pg (27.0-33.0); MCHC 31.2 % (32.0-36.0); MCV 95 fL (80-95); MPV 9.3 fL (8.0-11.0); Platelet Count 464 10^3/uL (130-400); RBC 3.93 10^6/uL (3.93-5.22); RDW 15.9 % (11.7-14.6); RDW-SD 55.5 fL; WBC 9.93 10^3/uL (4.4-10.8)
[2025-11-02 16:34] LABS: Anisocytosis 1+; Hypochromasia 1+; Immature Grans % 0.0 %
[2025-11-03 09:02] LABS: HBs Antibody, Quant <3.1 mIU/mL (See Note); Hepatitis B Surface Ab Negative (See Note)
[2025-11-03 09:48] LABS: HIV-1/2 Ag & Ab Screen Negative (Negative)
[2025-11-03 09:51] LABS: Hep B Core Antibody Negative (Negative)
[2025-11-03 10:34] LABS: Hepatitis C Ab w Rflx HCV PCR Reactive (Negative)
[2025-11-05 10:23] LABS: TB Interpretation Negative (Negative); TB1 Ag minus Nil 0.01 IU/mL; TB2 Ag minus Nil 0.01 IU/mL
== END 2025-11-02 08:22 | disposition home or self-care (01) ==
LOC: LBO 08:22
PROVIDERS: PCP Nurse Practitioner Family; Visit Provider Internal Medicine
DX: Z79.899 Other long term (current) drug therapy (principal)
CPT/HCPCS: 36415; 80053; 85652; 86704; 86706; 86803; 87340; 87389; 87522; 85025; 86140; 86480